=== PATIENT | male | born 1995 | race Caucasian/White ===

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

== ENCOUNTER 2017-03-31 15:05 | Inpatient (IN) | payer BC ==
[~2017-03-31] VITALS: Ht 177.8 cm; Wt 79.9 kg
[~2017-03-31 15:05] MED LIST changes: +ZANT150T2 PO; +ZOFR4TAB PO
[2017-03-31 15:06] VITALS: BP 125/64; PULSE 75; RESP 16; TEMP 98.9; O2SAT 97
--- NOTE | 2017-03-31 16:02 | PD ---
HPI . Overdose Chief Complaint: OD/ Ingestion Time Seen by Provider: 15:33 Travel History International Travel<30 days: No Contact w/Intl Traveler<30days: No Traveled to known affect area: No History of Present Illness HPI This patient presents status post a Klonopin overdose. He states that he took a total of 8 1 mg tablets. The ingestion occurred about 1:30 PM. He is having no adverse symptoms from the overdose such as drowsiness. He states that he has been feeling very stressed out about a new job. He states that he took the Klonopin hoping that it would make him feel better. The patient states that he was not trying to harm himself. He states that he was just trying to feel better. His mother disagrees. She is concerned that he was trying to hurt himself. PFSH Past Medical History ADD: Yes ADHD: Yes Autoimmune Disease: No Bipolar Disorder: Yes Anxiety: Yes Depression: Yes Cancer: No Cardiovascular Problems: No Cerebrovascular Accident: No Diabetes: No Diminished Hearing: No Endocrine: No Gastrointestinal Disorders: No Genitourinary: No Headaches: No Immune Disorder: No Implanted Vascular Access Dvce: No Musculoskeletal: No Neurologic: No Psychiatric: Yes (bipolar disorder, anxiety, depression) Respiratory: No Immunizations Current: Yes Migraines: No Schizophrenia: Yes Seizures: Yes Thyroid Disease: Yes (Evonne's disease) Ulcer: No Past Surgical History Section: No Social History Alcohol Use: Yes Tobacco Use: No (only 6 months) Substance Use: No Allergies-Medications (Allergen,Severity, Reaction): Coded Allergies: No Known Allergies (Unverified , 12/28/16) Reported Meds & Prescriptions Reported Meds & Active Scripts Active Zofran (Ondansetron HCl) 4 Mg Tab 4 Mg PO Q6HR PRN Zantac (Ranitidine HCl) 150 Mg Tab 150 Mg PO BID Benztropine (Benztropine Mesylate) 1 Mg Tab 1 Mg PO BID 15 Days Reported Ambien (Zolpidem Tartrate) 5 Mg Tab 5 Mg PO HS PRN Gabapentin 100 Mg Cap 200 Mg PO BID Klonopin (Clonazepam) 0.5 Mg Tab 1 Mg PO TID PRN Tirosint (Levothyroxine Sodium) 125 Mcg Cap 125 Mcg PO DAILY Review of Systems Except as stated in HPI: all other systems reviewed are Neg Psychiatric: Positive: Anxiety, Depression, Mood Disorder, No: Disorder of Thought Endocrine: Positive: Other (history of adrenal insufficiency and hypothyroidism ) Physical Exam Narrative GENERAL: The patient is awake and alert and does not appear to be in any distress. He appears well groomed. He is not disheveled. SKIN: Warm and dry with no rash or lesions. HEAD: Normocephalic/atraumatic. EYES: Pupils are equal. Extraocular movements are intact. NECK: Supple. CARDIOVASCULAR: Regular rate and rhythm. RESPIRATORY: Nonlabored respirations. MUSCULOSKELETAL: Atraumatic. NEUROLOGICAL: Nonfocal. PSYCHIATRIC: Appropriate mood and affect. Poor judgment. Data Data Last Documented VS Vital Signs Date Time Temp Pulse Resp B/P (MAP) Pulse Ox O2 Delivery O2 Flow Rate FiO2 03/31/17 15:06 98.9 75 16 125/64 (84) 97 Room Air Orders Orders Complete Blood Count With Diff (03/31/17 15:43) Basic Metabolic Panel (Bmp) (03/31/17 15:43) Thyroid Stimulating Hormone (03/31/17 15:43) Psych Screen (03/31/17 15:43) Drug Screen, Random Urine (03/31/17 15:43) Labs Laboratory Tests Test 03/31/17 15:50 White Blood Count 6.0 TH/MM3 Red Blood Count 4.35 MIL/MM3 Hemoglobin 12.1 GM/DL Hematocrit 36.3 % Mean Corpuscular Volume 83.6 FL Mean Corpuscular Hemoglobin 27.8 PG Mean Corpuscular Hemoglobin Concent 33.3 % Red Cell Distribution Width 15.5 % Platelet Count 205 TH/MM3 Mean Platelet Volume 8.8 FL Neutrophils (%) (Auto) 56.5 % Lymphocytes (%) (Auto) 29.3 % Monocytes (%) (Auto) 11.6 % Eosinophils (%) (Auto) 1.8 % Basophils (%) (Auto) 0.8 % Neutrophils # (Auto) 3.4 TH/MM3 Lymphocytes # (Auto) 1.8 TH/MM3 Monocytes # (Auto) 0.7 TH/MM3 Eosinophils # (Auto) 0.1 TH/MM3 Basophils # (Auto) 0.0 TH/MM3 CBC Comment DIFF FINAL Differential Comment Blood Urea Nitrogen 14 MG/DL Creatinine 0.94 MG/DL Random Glucose 83 MG/DL Calcium Level 8.8 MG/DL Sodium Level 139 MEQ/L Potassium Level 3.7 MEQ/L Chloride Level 105 MEQ/L Carbon Dioxide Level 26.8 MEQ/L Anion Gap 7 MEQ/L Estimat Glomerular Filtration Rate 102 ML/MIN Thyroid Stimulating Hormone 3rd Gen 1.640 uIU/ML MDM Medical Decision Making Medical Screen Exam Complete: Yes Emergency Medical Condition: Yes Medical Record Reviewed: Yes (this patient has had several previous admissions to this facility for overdose and other psychiatric issues. His current psychiatric diagnoses include autism spectrum, bipolar disorder, adjustment disorder, mood disorder, borderline personality disorder and intentional overdose on benzodiazepines.) Differential Diagnosis Differential diagnosis of depression includes but is not limited to episodic depression, major depression, bipolar disorder, PTSD Narrative Course This patient presents with the chief complaint to me of being stressed out by new job. He states that he took extra Klonopin to help his symptoms related to the stress. He denies suicidal ideation. I have initiated a medical clearance exam including a TSH because of his history of hypothyroidism. He is agreeable to speaking with a psych screener. CBC & BMP Diagram 03/31/17 15:50 Calcium Level 8.8 TSH is normal. This patient is now medically clear for psychiatric screening. Diagnosis Primary Impression: Intentional benzodiazepine overdose Qualified Codes: T42.4X2A - Poisoning by benzodiazepines, intentional self- harm, initial encounter Condition: Stable Marissa Johnson MD Mar 31, 2017 16:02
[2017-03-31 16:06] LABS: AUTOMATED NEUTROPHIL # 3.4 TH/MM3 (1.8-7.7); BASOPHIL % 0.8 % (0.0-2.0); EOSINOPHIL # 0.1 TH/MM3 (0-0.4); EOSINOPHIL % 1.8 % (0.0-4.0); HEMATOCRIT 36.3 % (39.0-51.0); HEMO FLAGS DIFF FINAL; LYMPH % 29.3 % (9.0-44.0); LYMPHOCYTE # 1.8 TH/MM3 (1.0-4.8); MEAN CELL VOLUME 83.6 FL (80.0-100.0); MEAN CORPUSCULAR HEMOGLOBIN 27.8 PG (27.0-34.0); MEAN CORPUSCULAR HGB CONC 33.3 % (32.0-36.0); MONO % 11.6 % (0.0-8.0); NEUT % 56.5 % (16.0-70.0); PLATELET COUNT 205 TH/MM3 (150-450); RED BLOOD COUNT 4.35 MIL/MM3 (4.50-5.90); RED CELL DISTRIBUTION WIDTH 15.5 % (11.6-17.2)
[2017-03-31 16:31] LABS: BICARBONATE 26.8 MEQ/L (21.0-32.0); POTASSIUM 3.7 MEQ/L (3.5-5.1)
--- NOTE | 2017-03-31 18:17 | PD ---
Physical Exam Narrative Informed by nurse that pt does not want to go to [facility]. Pt is medically clear for psych evaluation after overdosing on klonopin. Pt said he was stressed and depressed. Said he does have suicidal thoughts at times. I do not feel that he is a safe discharge if he decides to go and that this is not a normal response to stress. I feel that he is a danger to himself so will Mock Act him at this time and have pt wait for psych evaluation. He said he will wait as long as he does not go to [facility]. I informed him that he will have to go to [facility] if the medical bed is needed and he has not been seen by psych yet. He agrees. Data Data Last Documented VS Vital Signs Date Time Temp Pulse Resp B/P (MAP) Pulse Ox O2 Delivery O2 Flow Rate FiO2 03/31/17 21:21 75 16 118/62 (80) 98 Room Air 03/31/17 15:06 98.9 Orders Orders Complete Blood Count With Diff (03/31/17 15:43) Basic Metabolic Panel (Bmp) (03/31/17 15:43) Thyroid Stimulating Hormone (03/31/17 15:43) Psych Screen (03/31/17 15:43) Drug Screen, Random Urine (03/31/17 15:43) Diet Regular Basic (03/31/17 Dinner) Labs Laboratory Tests Test 03/31/17 15:50 03/31/17 18:40 White Blood Count 6.0 TH/MM3 Red Blood Count 4.35 MIL/MM3 Hemoglobin 12.1 GM/DL Hematocrit 36.3 % Mean Corpuscular Volume 83.6 FL Mean Corpuscular Hemoglobin 27.8 PG Mean Corpuscular Hemoglobin Concent 33.3 % Red Cell Distribution Width 15.5 % Platelet Count 205 TH/MM3 Mean Platelet Volume 8.8 FL Neutrophils (%) (Auto) 56.5 % Lymphocytes (%) (Auto) 29.3 % Monocytes (%) (Auto) 11.6 % Eosinophils (%) (Auto) 1.8 % Basophils (%) (Auto) 0.8 % Neutrophils # (Auto) 3.4 TH/MM3 Lymphocytes # (Auto) 1.8 TH/MM3 Monocytes # (Auto) 0.7 TH/MM3 Eosinophils # (Auto) 0.1 TH/MM3 Basophils # (Auto) 0.0 TH/MM3 CBC Comment DIFF FINAL Differential Comment Blood Urea Nitrogen 14 MG/DL Creatinine 0.94 MG/DL Random Glucose 83 MG/DL Calcium Level 8.8 MG/DL Sodium Level 139 MEQ/L Potassium Level 3.7 MEQ/L Chloride Level 105 MEQ/L Carbon Dioxide Level 26.8 MEQ/L Anion Gap 7 MEQ/L Estimat Glomerular Filtration Rate 102 ML/MIN Thyroid Stimulating Hormone 3rd Gen 1.640 uIU/ML Urine Opiates Screen NEG Urine Barbiturates Screen NEG Urine Amphetamines Screen NEG Urine Benzodiazepines Screen NEG Urine Cocaine Screen NEG Urine Cannabinoids Screen NEG MDM Supervised Visit with JEOVANNY: No Diagnosis Primary Impression: Intentional benzodiazepine overdose Qualified Codes: T42.4X2A - Poisoning by benzodiazepines, intentional self- harm, initial encounter Condition: Stable Tami Gordon DO Mar 31, 2017 18:17
[2017-03-31 21:21] VITALS: BP 118/62; PULSE 75; RESP 16; O2SAT 98
[2017-04-01 07:45] VITALS: BP 99/54; PULSE 71; RESP 18; O2SAT 99
[2017-04-01 15:00] VITALS: BP 134/61; PULSE 61; RESP 18
--- NOTE | 2017-04-01 15:19 | PD ---
History of Present Illness Chief Complaint: OD/ Ingestion Time Seen by Provider: 14:40 Travel History International Travel<30 Days: No Contact w/Intl Traveler<30days: No Known affected area: No Legal Status Legal Status: Mock Act Mock Act Signed By: [facility] CHICAS, [facility] History of Present Illness: History of Present Illness HPI Patient is a 22 year old male with history of bipolar disorder, borderline personality disorder,ADHD, cannabis use disorder, past history of self injurious behavior who presents status post a Klonopin overdose. He reports that he took a total of eight 1 mg tablets with intent to " kill myself because he feels that his psychiatric medications are not working." The ingestion occurred about 1:30 PM. Toxicology on arrival to Ed is negative for benzos. However the patient denied to ED providers that he took the medication as a suicide attempt. However he reported to them that that " he has been feeling very stressed out about a new job. He states that he took the Klonopin hoping that it would make him feel better and that he was not trying to harm himself." His mother disagrees. She is concerned that he was trying to hurt himself. EMR reviewed. Multiple Ed visits for suicidal gestures. Multiple admission for suicidal ideation and suicidal attempt. Last hosp was in October of 2016 when he reported he overdosed on Klonopin. His last hosp in psychiatry was on September 2016 when he reported feeling suicidal as well as reporting he was feeling manic. Patient seen. He is alert, oriented male who is maintaining basic hygiene. He reports feeling suicdal, hopeless with no desire to be alive. There is no psychosis and no audrey. Unable to contract for safety . Telephone call to Dr. Carty ,outpatient psychiatrist at [phone]. He reports that he saw patient once in outpatient and that he is recommending inpatient admission. He has discussed with this patient a possible trial of Clozaril and he would like for this medication to be started while the patient is in the hospital. [facility] Past Medical History ADD: Yes ADHD: Yes Autoimmune Disease: No Bipolar Disorder: Yes Weight (Kg): 3 Anxiety: Yes Depression: Yes Cancer: No Cardiovascular Problems: No Cerebrovascular Accident: No Diabetes: No Diminished Hearing: No Endocrine: No Gastrointestinal Disorders: No Genitourinary: No Headaches: No Immune Disorder: No Implanted Vascular Access Dvce: No Musculoskeletal: No Neurologic: No Psychiatric: Yes (bipolar disorder, anxiety, depression) Respiratory: No Immunizations Current: Yes Migraines: No Schizophrenia: Yes Seizures: Yes Thyroid Disease: Yes (Evonne's disease) Ulcer: No ?: Not Past Surgical History Surgical History: No Previous Surgery Section: No Psychiatric History Psychiatric History Hx Psychiatric Treatment: PATIENT WAS [facility] ADM[place] [place] [facility] [place] 10[place]26/16 FOR INTENTIONAL OVERDOSE. History of Inpatient Treatment: Yes Guns or firearms in home: No Social History Sing[place] male.Lives with parents. Has been working at [employer]. Hx Alcohol Use: Yes Hx Tobacco Use: No Hx Substance Use: No Substance Use Type: Marijuana, Benzos (Valium,Xanax) Hx of Substance Use Treatment: No Family Psychiatric History None reported Allergies-Medications (Allergen,Severity, Reaction): Coded Allergies: No Known Allergies (Unverified , 12/28/16) Reported Meds & Prescriptions Reported Meds & Active Scripts Active Zofran (Ondansetron HCl) 4 Mg Tab 4 Mg PO Q6HR PRN Zantac (Ranitidine HCl) 150 Mg Tab 150 Mg PO BID Benztropine (Benztropine Mesylate) 1 Mg Tab 1 Mg PO BID 15 Days Reported Ambien (Zolpidem Tartrate) 5 Mg Tab 5 Mg PO HS PRN Gabapentin 100 Mg Cap 200 Mg PO BID Klonopin (Clonazepam) 0.5 Mg Tab 1 Mg PO TID PRN Tirosint (Levothyroxine Sodium) 125 Mcg Cap 125 Mcg PO DAILY Review of Systems Except as stated in HPI: all other systems reviewed are Neg Mental Status Examination Appearance: Appropriate (dressed in pajamas) Orientation: x4 Motor Activity: Normal gait Speech: Unremarkable Language: Adequate Fund of Knowledge: Adequate Attention and Concentration: Adequate Memory: Unremarkable Mood: Sad Affect: Sad Thought Process & Associations: Intact Thought Content: Appropriate Hallucination Type: None Delusion Type: None Suicidal Ideation: Yes Suicidal Plan: Yes (overdose) Suicidal Intention: Yes Homicidal Ideation: No Homicidal Plan: No Homicidal Intention: No Insight: Poor Judgment: Impulsive MDM Medical Decision Making Medical Record Reviewed: Yes Assessment/Plan Patient is a 22 year old male with history of bipolar disorder, borderline personality disorder,ADHD, cannabis use disorder, past history of self injurious behavior who presents status post a Klonopin overdose. He reports that he took a total of eight 1 mg tablets with intent to " kill myself because he feels that his psychiatric medications are not working." The ingestion occurred about 1:30 PM. Toxicology on arrival to Ed is negative for benzos. However the patient denied to ED providers that he took the medication as a suicide attempt. However he reported to them that that " he has been feeling very stressed out about a new job. He states that he took the Klonopin hoping that it would make him feel better and that he was not trying to harm himself." Patient reports continued suicidal ideation with intent to overdose on medications. His outpatient psychiatrist is recommending hospitalization for possible initiation of Clozaril. The patient will be admitted for further monitoring, medication evaluation and to maintain safety. Orders Orders Complete Blood Count With Diff (03/31/17 15:43) Basic Metabolic Panel (Bmp) (03/31/17 15:43) Thyroid Stimulating Hormone (03/31/17 15:43) Psych Screen (03/31/17 15:43) Drug Screen, Random Urine (03/31/17 15:43) Diet Regular Basic (03/31/17 Dinner) Diet Regular Basic (04/01/17 Breakfast) Diet Regular Basic (04/01/17 Dinner) Results Vital Signs Date Time Temp Pulse Resp B/P (MAP) Pulse Ox O2 Delivery O2 Flow Rate FiO2 04/01/17 12:35 04/01/17 07:45 71 18 99/54 (69) 99 Room Air 03/31/17 21:21 75 16 118/62 (80) 98 Room Air Laboratory Tests Test 03/31/17 15:50 03/31/17 18:40 White Blood Count 6.0 Red Blood Count 4.35 Hemoglobin 12.1 Hematocrit 36.3 Mean Corpuscular Volume 83.6 Mean Corpuscular Hemoglobin 27.8 Mean Corpuscular Hemoglobin Concent 33.3 Red Cell Distribution Width 15.5 Platelet Count 205 Mean Platelet Volume 8.8 Neutrophils (%) (Auto) 56.5 Lymphocytes (%) (Auto) 29.3 Monocytes (%) (Auto) 11.6 Eosinophils (%) (Auto) 1.8 Basophils (%) (Auto) 0.8 Neutrophils # (Auto) 3.4 Lymphocytes # (Auto) 1.8 Monocytes # (Auto) 0.7 Eosinophils # (Auto) 0.1 Basophils # (Auto) 0.0 CBC Comment DIFF FINAL Differential Comment Blood Urea Nitrogen 14 Creatinine 0.94 Random Glucose 83 Calcium Level 8.8 Sodium Level 139 Potassium Level 3.7 Chloride Level 105 Carbon Dioxide Level 26.8 Anion Gap 7 Estimat Glomerular Filtration Rate 102 Thyroid Stimulating Hormone 3rd Gen 1.640 Urine Opiates Screen NEG Urine Barbiturates Screen NEG Urine Amphetamines Screen NEG Urine Benzodiazepines Screen NEG Urine Cocaine Screen NEG Urine Cannabinoids Screen NEG Diagnosis Primary Impression: Intentional benzodiazepine overdose Additional Impression: Borderline personality disorder Admitting Information Admitting Physician Requests: Admit Condition: Stable Problem Qualifiers Primary Impression: Intentional benzodiazepine overdose Qualified Codes: T42.4X2A - Poisoning by benzodiazepines, intentional self- harm, initial encounter Alondra Palma [facility] Apr 01, 2017 15:19
[2017-04-01] MEDS ORDERED: LORazepam 2 MG/ML VIAL IM PRN ×2 (16:15)
[2017-04-01] MEDS ORDERED: clonazePAM 1 MG TAB PO PRN (16:15)
[2017-04-01] MEDS ORDERED: ZOLPIDEM TARTRATE 5 MG TAB PO PRN (16:15)
[2017-04-01] MEDS ORDERED: ACETAMINOPHEN 325 MG TAB PO PRN (16:15)
[2017-04-01] MEDS ORDERED: MAGNESIUM HYDROXIDE SUSP 30 ML CUP PO PRN (16:15)
[2017-04-01] MEDS ORDERED: LORazepam 0.5 MG TAB PO PRN (16:15)
[2017-04-01] MEDS ORDERED: ALUMINUM/MAGNESIUM/SIMETH 30 ML CUP PO PRN (16:15)
[2017-04-01] MEDS ORDERED: LORazepam 1 MG TAB PO PRN (16:15)
[2017-04-01] MEDS ORDERED: NICOTINE 21 MG/24 HR PATCH T-DERMAL SCH (17:00)
[2017-04-01] MEDS ORDERED: LEVOTHYROXINE SODIUM 125 MCG TAB PO SCH (17:00)
[2017-04-01 18:03] VITALS: BP 134/61; PULSE 61; RESP 18; TEMP 98.9; O2SAT 99
[2017-04-01] MEDS: THYROID 60 MG TAB PO SCH (20:00)
[2017-04-01] MEDS: GABAPENTIN 100 MG CAP PO SCH (20:28)
[2017-04-01] MEDS ORDERED: REMOVE OLD NICODERM (NICOTINE) PATCH T-DERMAL SCH (21:00)
[2017-04-02 05:45] VITALS: BP 106/55; PULSE 60; RESP 17; TEMP 97.5; O2SAT 97
[2017-04-02] MEDS: GABAPENTIN 100 MG CAP PO SCH ×2 (09:00→09:13)
[2017-04-02] MEDS: THYROID 60 MG TAB PO SCH (09:13)
[2017-04-02 10:41] LABS: ANION GAP 4 MEQ/L (5-15); BICARBONATE 29.9 MEQ/L (21.0-32.0); BLOOD UREA NITROGEN 12 MG/DL (7-18); CHLORIDE 104 MEQ/L (98-107); GLOMERULAR FILTRATION RATE 121 ML/MIN (>89); POTASSIUM 4.3 MEQ/L (3.5-5.1); SODIUM (NA) 138 MEQ/L (136-145)
[2017-04-02 10:44] LABS: HDL CHOLESTEROL 32.3 MG/DL (40.0-60.0); LDL CHOLESTEROL 46 MG/DL (0-99)
--- NOTE | 2017-04-02 10:51 | HHI.HP ---
Provisional Diagnosis Admission Date Apr 01, 2017 at 16:07 [place]. 1. Atypical bipolar disorder [place]. 1. Mixed personality disorder Certification of Person's Competence To Provide Express and Informed Consent I have personally examined Lex Stephensno , a person being served at [facility] on, Apr 02, 2017 10:51. Express and informed consent means consent voluntarily given in writing, by a competent person, after sufficient explanation and disclosure of the subject matter involved to enable the person to make a knowing and willful decision without any element of force, fraud, deceit, duress, or other form of constraint or coercion. This person is 18 years of age or older, is not now known to be incompetent to consent to treatment with a guardian advocate, and does not have a health care surrogate or proxy currently making medical treatment decisions. I have found this person to be one of the following: [x] Competent to provide express and informed consent, as defined above, for voluntary admission to this facility and is competent to provide express and informed consent for treatment. He/she has the consistent capacity to make well reasoned, willful, and knowing decisions concerning his or her medical or mental health treatment. The person fully and consistently understands the purpose of the admission for examination/placement and is fully capable of personally exercising all rights assured [place] Incompetent to provide express and informed consent to voluntary admission, and this is incompetent to provide express and informed consent to treatment. The person must be transferred to involuntary status and a petition for a guardian advocate filed with the Circuit Court. [] Refusing to provide express and informed consent to voluntary admission but is competent to provide express and informed consent for treatment. The person must be discharged or transferred to involuntary status. Form shall be completed within 24 hours of a person's arrival at the receiving facility and filed in the clinical record of each person: 1. Admitted on a voluntary basis 2. Permitted to provide express and informed consent to his/her own treatment 3. Allowed to transfer from involuntary to voluntary status 4. Prior to permitting a person to consent to his or her own treatment after having been previously found incompetent to consent to treatment. History of Present Illness Capacity: Has Capacity Psych Chief Complaint: "I tried to kill myself again." HPI Mr. Stephenson is a 22-year-old male, well known to the psychiatric service here from multiple prior admissions and ED visits who presented voluntarily to the emergency department following an overdose on 8 Klonopin. He was placed under the Mock act in the ED. Nurse practitioner evaluated patient in the ED and also discussed case with outpatient psychiatrist who is requesting a Clozaril trial. Reviewing the electronic medical record, I note the patient was seen most recently in consultation by Dr. Mora in October of this year. Patient seen and examined. Chart reviewed. Case discussed with nursing staff. The patient says that he "started feeling a little stressed in the last few days before starting work" and impulsively decided to overdose on 8 x 1 mg Klonopin tablets. He says that it was his intention to take more and that this was a suicidal overdose but his father found out and aborted the attempt. He says that prior to feeling stressed out recently things have been going well for him, he was compliant with medications, exercising and his mood was better than it had been in some time. Now, he describes himself as "deeply and darkly depressed." He does remain somewhat future oriented. Besides low mood, the patient does not describe many depressive symptoms. He denies SI/HI at this time and denies any urge to hurt himself on the inpatient unit. He does contract for safety on the unit. He denies AVH, and I can elicit no delusional material. Prominent mixed personality disorder traits, chiefly borderline. Medication seeking for benzodiazepines. The remainder of the psychiatric ROS is negative. No physical complaints. Past psychiatric history: The patient has a history of bipolar disorder, borderline personality disorder and concern for substance use issues. He had been following with Dr. Reyes but recently has switched to Dr. Yusuf. He reports that he was recently hospitalized at [facility] for inpatient ECT. He says that he received 8 treatments, which helped, but he did not pursue any continuation or maintenance ECT, and the therapeutic gains that he had experienced with the acute series rapidly abated. Multiple previous suicidal gestures. He is not currently pursuing psychotherapy. I do recall that he was supposed to participate in a DBT program in the past, which he says he did "for a little bit." I did endeavor to reach out to Dr. Yusuf regarding the requested initiation of Clozaril. I left a message at his office. He called me back and left a voicemail requesting initiation of Clozaril. I did try to call him back once more and left a voicemail of my own. Placed call to patient's [facility] pharmacy. Most recent med list is: [place] thyroid 60mg per day clonidine 0.2mg qAM and 0.1mg qHS Klonopin 1mg BID plus 1mg daily PRN anxiety Lamictal 100mg BID Remeron 30mg qHS Review of Systems Except as stated in HPI: all other systems reviewed are Neg Past Psych History Psychological trauma history No reported trauma history to me. Violence risk - others (6 mos) Lower imminent risk. No homicidal ideation. No known history of violence. Violence risk - self (6 mos) Likely chronically elevated risk as a consequence of his personality disorder. Besides medication adjustment, main purpose of this admission will be to determine if there are any acute risk factors for self-harm. Substance Abuse History Drugs/Alcohol past 12 months Patient denies any abuse of drugs or alcohol. Concern has been raised in the past that the patient is misusing his benzodiazepines, most recently by Dr. Mora. Past Family Social History Coded Allergies: No Known Allergies (Unverified , 12/28/16) Past Medical History See electronic medical record Active Scripts Ondansetron (Zofran) 4 Mg Tab, 4 MG PO Q6HR Y for NAUSEA OR VOMITING, #12 TAB 0 Refills Prov:Marissa Johnson MD 12/28/16 Ranitidine (Zantac) 150 Mg Tab, 150 MG PO BID for Reduce Stomach Acid, #60 TAB 0 Refills Prov:Marissa Johnson MD 12/28/16 Benztropine (Benztropine) 1 Mg Tab, 1 MG PO BID for Side effect management for 15 Days, TAB 1 Refill Prov:Messi Miguel MD 09/22/16 Reported Medications Zolpidem (Ambien) 5 Mg Tab, 5 MG PO HS Y for INSOMNIA, TAB 0 Refills 07/18/16 Gabapentin (Gabapentin) 100 Mg Cap, 200 MG PO BID, #60 CAP 0 Refills 07/18/16 Clonazepam (Klonopin) 0.5 Mg Tab, 1 MG PO TID Y for ANXIETY, #90 TAB 0 Refills 07/18/16 Levothyroxine (Tirosint) 125 Mcg Cap, 125 MCG PO DAILY for Thyroid, #30 CAP 0 Refills 05/18/16 Current Medications Medications (Trade) Dose Ordered Sig/Inocencio Route Start Time Stop Time Status Last Admin (KlonoPIN) 1 mg TID PRN PO 04/01/17 16:15 04/01/17 18:42 (Neurontin) 200 mg BID PO 04/01/17 21:00 04/01/17 20:28 (Ambien) 5 mg HS PRN PO 04/01/17 16:15 04/01/17 22:25 (Tylenol) 650 mg Q4H PRN PO 04/01/17 16:15 (Milk Of Magnesia Liq) 30 ml DAILY PRN PO 04/01/17 16:15 (Mag-Al Plus Susp Liq) 30 ml Q6H PRN PO 04/01/17 16:15 ([place] Thyroid) 60 mg DAILY PO 04/01/17 20:00 04/02/17 09:13 Family Psych History Patient denies any family history of mental illness Social History Patient reports that he lives with his parents. He is starting a new job at [employer]. 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 Otherwise, social history unchanged from previous assessments. Patient's Strengths (min. 2) In a monitored setting. Verbally fluent. Physical Exam Physical exam completed by ED provider. On my examination today, the patient appears to be in no acute physical distress. No motor abnormalities noted. No signs of intoxication or withdrawal noted. Labs and vitals reviewed: Vital Signs Vital Signs Date Time Temp Pulse Resp B/P (MAP) Pulse Ox O2 Delivery O2 Flow Rate FiO2 04/02/17 05:45 97.5 60 17 106/55 (72) 97 04/01/17 15:00 Room Air Lab Results Item Value Date Time White Blood Count 6.0 TH/MM3 03/31/17 1550 Hemoglobin 12.1 GM/DL L 03/31/17 1550 Platelet Count 205 TH/MM3 03/31/17 1550 Neutrophils # (Auto) 3.4 TH/MM3 03/31/17 1550 Sodium Level 138 MEQ/L 04/02/17 0944 Potassium Level 4.3 MEQ/L 04/02/17 0944 Chloride Level 104 MEQ/L 04/02/17 0944 Carbon Dioxide Level 29.9 MEQ/L 04/02/17 0944 Blood Urea Nitrogen 12 MG/DL 04/02/17 0944 Creatinine 0.81 MG/DL 04/02/17 0944 Random Glucose 78 MG/DL 04/02/17 0944 Estimat Glomerular Filtration Rate 121 ML/MIN 04/02/17 0944 Thyroid Stimulating Hormone 3rd Gen 1.640 uIU/ML 03/31/17 1550 Urine Opiates Screen NEG 03/31/17 1840 Urine Barbiturates Screen NEG 03/31/17 1840 Urine Amphetamines Screen NEG 03/31/17 1840 Urine Benzodiazepines Screen NEG 03/31/17 1840 Urine Cocaine Screen NEG 03/31/17 1840 Urine Cannabinoids Screen NEG 03/31/17 1840 Aspartate Amino Transf (AST/SGOT) 22 U/L 12/28/16 1350 Alanine Aminotransferase (ALT/SGPT) 30 U/L 12/28/16 1350 Alkaline Phosphatase 83 U/L 12/28/16 1350 Labs reviewed. Anemia is within patient's historical range. TSH is within normal limits. ANC is adequate for Clozaril therapy. Mental Status Examination Appearance: Appropriate Consciousness: Alert Orientation: x4 Motor Activity: Normal gait, Other (no abnormal motor movements noted) Speech: Unremarkable Language: Adequate Fund of Knowledge: Adequate Attention and Concentration: Adequate Memory: Unremarkable Mood: Other (depressed) Affect: Blunt Thought Process & Associations: Logical, Linear Thought Content: Appropriate Hallucination Type: None Delusion Type: None Suicidal Ideation: No Suicidal Plan: No Suicidal Intention: No Homicidal Ideation: No Homicidal Plan: No Homicidal Intention: No Insight: Poor Judgment: Impulsive Assessment & Plan Problem List: (1) Atypical bipolar disorder ICD Codes: F31.89 - Other bipolar disorder (2) Mixed personality disorder ICD Codes: F60.89 - Other specific personality disorders Status: Acute Assessment & Plan 22-year-old male with psychiatric history as detailed above who is presently admitted to the inpatient unit under a Mock act. On my examination today, the patient continues to present with prominent personality disorder characteristics, chiefly borderline. Outpatient psychiatrist, presumably treating as for treatment resistant bipolar disorder, is requesting clozapine trial. I suspect personality pathology is the primary driver education instructor for patient's recurrent gestural overdoses and psychiatric symptomatology generally. However , given the persistence of these problematic behaviors, I think that a trial of clozapine is not wholly unreasonable. I will plan to admit the patient to the inpatient psychiatric unit for a medication adjustment. Admitted inpatient. Voluntary status. Initiate clozapine 25mg qHS, titrate to 50mg qHS over weekend. Weekly CBCs. Continue Lamictal 100mg BID, Remeron 30mg qHS and Klonopin 1mg BID + 1mg daily PRN anxiety along with clonidine as prescribed on an outpatient basis. I share Dr. Mora's concerns about substance use issues, and so I will not escalate the dose of benzos. Check EKG. Seizure and fall precautions. Vitals every shift. Counselor to see. Disposition planning. Estimated length of stay: 3-5 days. Discharge Planning Pending outcome of observation and med change Request HC Surrog/Guard Advoc?: No Messi Miguel MD Apr 02, 2017 10:51
[2017-04-02] MEDS ORDERED: clonazePAM 1 MG TAB PO PRN (13:30)
[2017-04-02] MEDS: clonazePAM 1 MG TAB PO SCH ×2 (14:45→20:17)
[2017-04-02] MEDS: lamoTRIgine 100 MG TAB PO SCH ×2 (14:45→20:17)
[2017-04-02 15:14] LABS: HEMOGLOBIN A1a 0.9 %; HEMOGLOBIN A1b 0.8 %; HEMOGLOBIN Ao 86.8 %; HEMOGLOBIN F 0.9 %; HEMOGLOBIN LA1C 1.7 %; HEMOGLOBIN P3 3.3 %
[2017-04-02 17:00] VITALS: BP 120/67; PULSE 75; RESP 18; TEMP 98.1; O2SAT 98
[2017-04-02] MEDS: MIRTAZAPINE 15 MG TAB PO SCH (20:17)
[2017-04-02] MEDS: cloZAPine 25 MG TAB PO SCH (20:17)
[2017-04-02] MEDS: cloNIDine HCL 0.1 MG TAB PO SCH (20:18)
[2017-04-03 05:44] VITALS: BP 101/55; PULSE 59; RESP 18; TEMP 97.4; O2SAT 99
[2017-04-03] MEDS: cloNIDine HCL 0.2 MG TAB PO SCH ×2 (08:38→11:00)
[2017-04-03] MEDS: THYROID 60 MG TAB PO SCH (08:38)
[2017-04-03] MEDS: clonazePAM 1 MG TAB PO SCH ×2 (08:38→20:25)
[2017-04-03] MEDS: lamoTRIgine 100 MG TAB PO SCH ×2 (08:38→20:26)
[2017-04-03 11:11] VITALS: BP 118/71; PULSE 75
--- NOTE | 2017-04-03 17:04 | HHI.PYPN ---
Subjective Chief Complaint: "I tried to kill myself again." Remarks Patient was seen and case discussed with nursing. Patient is pleasant and cooperative with exam. He is showing good insight and is very inquisitive about his medications. Later becomes perseverative on a specific discharge date. Has not noticed any side effects beside mild sedation. Patient says his mood has improved but he has fleeting suicidal thoughts wishing that he was not alive anymore. Feeling hopeless. He does deny ideation intent or plan Mental Status Examination Appearance: Appropriate Consciousness: Alert Orientation: x4 Motor Activity: Normal gait, Other (no abnormal motor movements noted) Speech: Unremarkable Language: Adequate Fund of Knowledge: Adequate Attention and Concentration: Adequate Memory: Unremarkable Mood: Other (depressed) Affect: Blunt Thought Process & Associations: Logical, Linear Thought Content: Appropriate Hallucination Type: None Delusion Type: None Suicidal Ideation: Yes (fleeting) Suicidal Plan: No Suicidal Intention: No Homicidal Ideation: No Homicidal Plan: No Homicidal Intention: No Insight: Poor Judgment: Impulsive Results Vitals/IOs Vital Signs Date Time Temp Pulse Resp B/P (MAP) Pulse Ox O2 Delivery O2 Flow Rate FiO2 04/03/17 11:11 75 118/71 (87) 04/03/17 05:44 97.4 18 99 04/01/17 15:00 Room Air Assessment & Plan Problem List: (1) Atypical bipolar disorder ICD Codes: F31.89 - Other bipolar disorder (2) Mixed personality disorder ICD Codes: F60.89 - Other specific personality disorders Status: Acute Assessment & Plan Continue current treatment plan Justification for Cont. Inpt. Patient will decompensate in a less restrictive setting Request HC Surrog/Guard Advoc?: No Dami Cedillo DO Apr 03, 2017 17:04
[2017-04-03 18:37] VITALS: BP 104/57; PULSE 76; RESP 17; TEMP 98.7; O2SAT 98
[2017-04-03] MEDS: cloNIDine HCL 0.1 MG TAB PO SCH (20:25)
[2017-04-03] MEDS: MIRTAZAPINE 15 MG TAB PO SCH (20:26)
[2017-04-03] MEDS: cloZAPine 25 MG TAB PO SCH (20:26)
[2017-04-04 05:32] VITALS: BP 104/51; PULSE 73; RESP 18; TEMP 98.1; O2SAT 98
[2017-04-04] MEDS: cloNIDine HCL 0.2 MG TAB PO SCH (08:06)
[2017-04-04] MEDS: THYROID 60 MG TAB PO SCH (08:08)
[2017-04-04] MEDS: lamoTRIgine 100 MG TAB PO SCH ×2 (08:08→20:46)
[2017-04-04] MEDS: clonazePAM 1 MG TAB PO SCH ×2 (08:09→20:45)
--- NOTE | 2017-04-04 14:02 | HHI.PYPN ---
Subjective Chief Complaint: "I tried to kill myself again." Remarks Patient was seen and case discussed with nursing. Patient remains somnolent feels "tired" but less so today. Patient is minimizing his mental health and believes that he is ready to go, get a job [employer]. He signed a right of release at 11 AM. Affect remains flat. Mood is "better." Denies suicidal homicidal ideations thought intent or plan. Largely seclusive to self. Mental Status Examination Appearance: Appropriate Consciousness: Alert Orientation: x4 Motor Activity: Normal gait, Other (no abnormal motor movements noted) Speech: Unremarkable Language: Adequate Fund of Knowledge: Adequate Attention and Concentration: Adequate Memory: Unremarkable Mood: Other ("better") Affect: Flat Thought Process & Associations: Logical, Linear Thought Content: Appropriate Hallucination Type: None Delusion Type: None Suicidal Ideation: Yes (fleeting) Suicidal Plan: No Suicidal Intention: No Homicidal Ideation: No Homicidal Plan: No Homicidal Intention: No Insight: Poor Judgment: Impulsive Results Vitals/IOs Vital Signs Date Time Temp Pulse Resp B/P (MAP) Pulse Ox O2 Delivery O2 Flow Rate FiO2 04/04/17 07:13 04/04/17 05:32 98.1 73 18 98 04/01/17 15:00 Room Air Assessment & Plan Problem List: (1) Atypical bipolar disorder ICD Codes: F31.89 - Other bipolar disorder (2) Mixed personality disorder ICD Codes: F60.89 - Other specific personality disorders Status: Acute Assessment & Plan Continue current treatment plan Justification for Cont. Inpt. Patient would decompensate in a less restrictive setting Request HC Surrog/Guard Advoc?: No Dami Cedillo DO Apr 04, 2017 14:02
[2017-04-04 16:40] VITALS: BP 105/55; PULSE 68; RESP 17; TEMP 98.2; O2SAT 97
[2017-04-04] MEDS: MIRTAZAPINE 15 MG TAB PO SCH (20:45)
[2017-04-04] MEDS: cloNIDine HCL 0.1 MG TAB PO SCH (20:46)
[2017-04-04] MEDS: cloZAPine 25 MG TAB PO SCH (20:47)
--- NOTE | 2017-04-04 21:12 | EKG ---
Date Performed: 04/02/2017 Time Performed: 14:25:24 PTAGE: 22 years EKG: Sinus rhythm NORMAL ECG PREVIOUS TRACING : 10/24/2016 02.50 DOCTOR: Alfonso Chan Interpretating Date/Time 04/04/2017 21:02:25
[2017-04-05 05:44] VITALS: BP 126/64; PULSE 81; RESP 18; TEMP 98.1; O2SAT 99
[2017-04-05] MEDS ORDERED: MIRTA15 PO (09:07)
[2017-04-05] MEDS ORDERED: CLON.2 PO (09:07)
[2017-04-05] MEDS ORDERED: CLOZ25 PO (09:07)
[2017-04-05] MEDS ORDERED: CLON.1 PO (09:07)
[2017-04-05] MEDS ORDERED: LAMO100 PO (09:07)
--- NOTE | 2017-04-05 09:07 | HHI.DS ---
Psychiatry Discharge Summary Inpatient Psychiatric care?: Yes Advance Directive: No Reason Not Provided: deferred by patient [facility] AdvanceDirective: No Health Care Proxy: No Admission Admission Date Apr 01, 2017 at 16:07 Admission Diagnosis: (1) Atypical bipolar disorder ICD Code: F31.89 - Other bipolar disorder (2) Mixed personality disorder ICD Code: F60.89 - Other specific personality disorders Brief History Mr. Stephenson is a 22-year-old male, well known to the psychiatric service here from multiple prior admissions and ED visits who presented voluntarily to the emergency department following an overdose on 8 Klonopin. He was placed under the Mock act in the ED. Nurse practitioner evaluated patient in the ED and also discussed case with outpatient psychiatrist who is requesting a Clozaril trial. Reviewing the electronic medical record, I note the patient was seen most recently in consultation by Dr. Mora in October of this year. Patient seen and examined. Chart reviewed. Case discussed with nursing staff. The patient says that he "started feeling a little stressed in the last few days before starting work" and impulsively decided to overdose on 8 x 1 mg Klonopin tablets. He says that it was his intention to take more and that this was a suicidal overdose but his father found out and aborted the attempt. He says that prior to feeling stressed out recently things have been going well for him, he was compliant with medications, exercising and his mood was better than it had been in some time. Now, he describes himself as "deeply and darkly depressed." He does remain somewhat future oriented. Besides low mood, the patient does not describe many depressive symptoms. He denies SI/HI at this time and denies any urge to hurt himself on the inpatient unit. He does contract for safety on the unit. He denies AVH, and I can elicit no delusional material. Prominent mixed personality disorder traits, chiefly borderline. Medication seeking for benzodiazepines. The remainder of the psychiatric ROS is negative. No physical complaints. Past psychiatric history: The patient has a history of bipolar disorder, borderline personality disorder and concern for substance use issues. He had been following with Dr. Reyes but recently has switched to Dr. Yusuf. He reports that he was recently hospitalized at [facility] for inpatient ECT. He says that he received 8 treatments, which helped, but he did not pursue any continuation or maintenance ECT, and the therapeutic gains that he had experienced with the acute series rapidly abated. Multiple previous suicidal gestures. He is not currently pursuing psychotherapy. I do recall that he was supposed to participate in a DBT program in the past, which he says he did "for a little bit." I did endeavor to reach out to Dr. Yusuf regarding the requested initiation of Clozaril. I left a message at his office. He called me back and left a voicemail requesting initiation of Clozaril. I did try to call him back once more and left a voicemail of my own. Placed call to patient's [facility] pharmacy. Most recent med list is: Bapchule thyroid 60mg per day clonidine 0.2mg qAM and 0.1mg qHS Klonopin 1mg BID plus 1mg daily PRN anxiety Lamictal 100mg BID Remeron 30mg qHS Tobacco Use In Past 30 Days: No Tobacco Past 30 Days Alcohol Use: Never Hospital Course Patient was admitted to a locked, inpatient psychiatric unit. Appropriate precautions were in place throughout patient's hospital stay. Patient was seen and examined daily on the unit by psychiatry and also visited by counselor. Psychotropic medications were adjusted. Patient tolerated medications well without side effects. Patient had improvement in presenting psychiatric symptomatology during the course of his hospital stay. There was no evidence of any suicidality or homicidality on the inpatient unit. The patient remained in good behavioral control and was medication compliant. He has completed a right of release. On the day of discharge: Patient seen and examined. Chart reviewed. Case discussed with nursing staff. No behavioral issues overnight. On my examination today, the patient continues to insist on discharge from the inpatient psychiatric unit today. He denies any suicidal or homicidal ideation , intent or plan on direct questioning and contracts for safety. He is future oriented. He says that he is "doing a lot better, and I want to get back to work." He says that prior to coming into the hospital he was feeling "angry and depressed" and now he is feeling neither of these things. Mood is reportedly improved and I can elicit no depressive or hypomanic/manic symptoms at this time. He denies any audiovisual hallucinations, and I can elicit no delusional beliefs. Cluster B personality traits remain evident. He denies any side effects from medications besides some mild drowsiness and lightheadedness. I have recommended to patient that he try holding his clonidine in particular if he continues to experience episodes of lightheadedness. He should not operate heavy machinery and should practice safe standing while he continues to experience these symptoms. I have recommended that he remain on the inpatient psychiatric unit for further monitoring on medications but he has declined. He notes that he has a psychology appointment tomorrow. I have spoken with patient's outpatient psychiatrist, Dr. Yusuf, on the day of discharge and discussed patient's hospital course and medication changes. 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 I do suspect there is a component of chronic but not acute or imminent risk related to the patient's cluster B personality style, and this risk would not be ameliorated by a longer inpatient psychiatric hospital stay. The patient does not meet criteria for involuntary psychiatric hospitalization at this time. He is requesting discharge from the inpatient psychiatric unit today and has completed a right of release, and so I will arrange for his discharge with psychiatric follow-up as arranged by counselor. Patient is also to follow-up with primary care. I have counseled the patient regarding warning signs for need to return to the psychiatric emergency room as part of the general safety plan. Results Blood Pressure 126 / 64 Vital Signs Date Time Temp Pulse Resp B/P (MAP) Pulse Ox O2 Delivery O2 Flow Rate FiO2 04/05/17 05:44 98.1 81 18 126/64 (84) 99 04/01/17 15:00 Room Air Laboratory Tests Test 04/02/17 09:44 Anion Gap 4 MEQ/L (5-15) Triglycerides Level 160 MG/DL (42-150) Cholesterol Level 110 MG/DL (120-200) HDL Cholesterol 32.3 MG/DL (40.0-60.0) Laboratory Results Test 04/02/17 09:44 Cholesterol Level 110 MG/DL (120-200) HDL Cholesterol 32.3 MG/DL (40.0-60.0) Hemoglobin A1c 5.3 % (4.3-6.0) LDL Cholesterol 46 MG/DL (0-99) Triglycerides Level 160 MG/DL (42-150) Summary of Major Lab Results CBC from 04/05 reviewed. ANC remains adequate for clozapine therapy. Summary of Procedures None done Imaging None done Pending results at discharge: No Medications # of Antipsychotic meds at D/C: 1 Approp Antipsych med options 1 - Minimum of three failed multiple trials of monotherapy. 2 - Documented plan to taper to monotherapy due to previous use of multiple meds OR cross-taper in progress at D/C. 3 - Documentation of augmentation of Clozapine. 4 - Justification other than those listed in allowable values 1-3, document here : Discharge Discharge Date: Apr 05, 2017 Discharge Diagnosis: (1) Atypical bipolar disorder Diagnosis: Principal (stabilized) ICD Code: F31.89 - Other bipolar disorder (2) Mixed personality disorder Diagnosis: Secondary (chronic) ICD Code: F60.89 - Other specific personality disorders Status: Acute Pt Condition on Discharge: Stable Discharge Disposition: Discharge Home Discharge Instructions Diet Instructions: As Tolerated, No Restrictions Activities you can perform: Weight Bearing as [place] Scheduled Appointment: as per counselor's notes New Orders: CBC WITH DIFF - 1 Week New Medications: Clonidine (Catapres) 0.2 Mg Tab 0.2 MG PO DAILY for Mental Health for 1 Day, #1 TAB 0 Refills Order is to update med rec only. Pt has supply at home. Clonidine (Catapres) 0.1 Mg Tab 0.1 MG PO HS for Mental Health for 1 Day, TAB 0 Refills Order is to update med rec only. Pt has supply at home. Clozapine (Clozaril) 25 Mg Tab 50 MG PO HS for Mental Health for 10 Days, TAB 2 Refills Discuss with outpatient provider further adjustment of this agent. Lamotrigine (Lamictal) 100 Mg Tab 100 MG PO Q12HR for Mental Health for 1 Day, TAB 0 Refills Order is to update med rec only. Pt has supply at home. Mirtazapine (Mirtazapine) 15 Mg Tab 30 MG PO HS for Mental Health for 1 Day, TAB 0 Refills Order is to update med rec only. Pt has supply at home. Continued Medications: Clonazepam (Klonopin) 0.5 Mg Tab 1 MG PO TID PRN for ANXIETY, #90 TAB 0 Refills Levothyroxine (Tirosint) 125 Mcg Cap 125 MCG PO DAILY for Thyroid, #30 CAP 0 Refills Ranitidine (Zantac) 150 Mg Tab 150 MG PO BID for Reduce Stomach Acid, #60 TAB 0 Refills Discontinued Medications: Benztropine (Benztropine) 1 Mg Tab 1 MG PO BID for Side effect management for 15 Days, TAB 1 Refill Gabapentin (Gabapentin) 100 Mg Cap 200 MG PO BID, #60 CAP 0 Refills Ondansetron (Zofran) 4 Mg Tab 4 MG PO Q6HR PRN for NAUSEA OR VOMITING, #12 TAB 0 Refills Zolpidem (Ambien) 5 Mg Tab 5 MG PO HS PRN for INSOMNIA, TAB 0 Refills Discharge Time > 30 minutes Mental Status Examination Appearance: Appropriate Consciousness: Alert Orientation: x4 Motor Activity: Normal gait, Other (no hand tremor, no cogwheeling, no dystonias, no dyskinesias noted. No other abnormal motor movements noted.) Speech: Unremarkable Language: Adequate Fund of Knowledge: Adequate Attention and Concentration: Adequate Memory: Unremarkable Mood: Appropriate (improved versus admission) Affect: Appropriate Thought Process & Associations: Logical, Goal directed, Linear Thought Content: Appropriate Hallucination Type: None Delusion Type: None Suicidal Ideation: No Suicidal Plan: No Suicidal Intention: No Homicidal Ideation: No Homicidal Plan: No Homicidal Intention: No Insight: Fair Judgment: Impulsive (chronic) Discharge/Advance Care Plan Health Problems: (1) Atypical bipolar disorder (2) Mixed personality disorder Goals to promote your health * To prevent worsening of your condition and complications * To maintain your health at the optimal level Directions to meet your goals Take your medications as prescribed Follow your dietary instruction Follow activity as directed Keep your appointments as scheduled Take your immunizations and boosters as scheduled If your symptoms worsen call your PCP, if no PCP go to Urgent Care Center or Emergency Room For 24/ questions related to your inpatient stay or results of tests pending at discharge, please contact Dr. Messi Miguel at Smoking is Dangerous to Your Health. Avoid second hand smoking Messi Miguel MD Apr 05, 2017 09:07
[2017-04-05] MEDS: lamoTRIgine 100 MG TAB PO SCH (09:08)
[2017-04-05] MEDS: clonazePAM 1 MG TAB PO SCH (09:08)
[2017-04-05] MEDS: THYROID 60 MG TAB PO SCH (09:08)
[2017-04-05] MEDS: cloNIDine HCL 0.2 MG TAB PO SCH (09:08)
[2017-04-05 11:53] LABS: AUTOMATED NEUTROPHIL # 3.1 TH/MM3 (1.8-7.7); BASOPHIL # 0.1 TH/MM3 (0-0.2); BASOPHIL % 1.1 % (0.0-2.0); EOSINOPHIL # 0.2 TH/MM3 (0-0.4); EOSINOPHIL % 2.9 % (0.0-4.0); HEMATOCRIT 40.6 % (39.0-51.0); HEMO FLAGS DIFF FINAL; LYMPH % 33.4 % (9.0-44.0); MEAN CELL VOLUME 84.4 FL (80.0-100.0); MEAN CORPUSCULAR HEMOGLOBIN 27.8 PG (27.0-34.0); NEUT % 51.6 % (16.0-70.0); PLATELET COUNT 208 TH/MM3 (150-450); RED CELL DISTRIBUTION WIDTH 15.4 % (11.6-17.2); WHITE BLOOD COUNT 6.1 TH/MM3 (4.0-11.0)
== END 2017-04-05 14:10 | disposition home or self-care (01) | DRG 885 ==
LOC: NEPD 15:05 → NEDA 04-01 16:07 → H270 04-01 17:40
PROVIDERS: ADMIT Psychiatry & Neurology Psychiatry; ATTEND Psychiatry & Neurology Psychiatry
DX: F31.89 Other bipolar disorder (principal); F84.0 Autistic disorder; T42.4X2A Poisoning by benzodiazepines, intentional self-harm, initial encounter; F60.89 Other specific personality disorders; F20.9 Schizophrenia, unspecified; F90.9 Attention-deficit hyperactivity disorder, unspecified type; F41.9 Anxiety disorder, unspecified; E06.3 Autoimmune thyroiditis; F12.90 Cannabis use, unspecified, uncomplicated; Z91.5 Personal history of self-harm
CPT/HCPCS: 80048; 80061; 80307; 83036; 84443; 85025; 93005

== ENCOUNTER 2017-06-21 16:18 | Emergency (ER) | payer BC ==
[~2017-06-21 16:18] MED LIST changes: -AMBI5TAB PO; -BENZ1TAB PO; +CLON.1 PO; +CLON.2 PO; +CLOZ25TA PO; -GABA100C4 PO; +LAMO100 PO; +MIRTA15 PO; -ZOFR4TAB PO
[2017-06-21 16:21] VITALS: BP 135/74; PULSE 113; RESP 20; TEMP 98.6; O2SAT 98
[2017-06-21 17:26] LABS: BILIRUBIN, URINE NEG (NEG); BLOOD, URINE TRACE (NEG); GLUCOSE,URINE NEG (NEG); KETONE, URINE TRACE mg/dL (NEG); NITRITE,URINE NEG (NEG); URINE LEUKOCYTE ESTERASE NEG (NEG)
[2017-06-21] MEDS ORDERED: SODIUM CHLOR 0.9% 1000 ML INJ 1,000 ML IV SCH (17:27)
[2017-06-21] MEDS ORDERED: ONDANSETRON HCL 4 MG/2 ML VIAL IVP ONE (17:30)
[2017-06-21] MEDS ORDERED: SODIUM CHLORIDE 0.9% FLUSH 10 ML FLUSH IV FLUSH PRN (17:30)
[2017-06-21] MEDS ORDERED: KETOROLAC TROMETHAMINE 30 MG/ML (IVP) VIAL IVP ONE (17:30)
[2017-06-21 17:55] LABS: URINE COLOR YELLOW (YELLW/STRAW)
[2017-06-21 17:56] VITALS: O2SAT 99
[2017-06-21 17:57] LABS: MUCUS URINE MOD /lpf (OCC); SQUAMOUS EPITHELIAL CELL URINE 0-5 /hpf (0-5)
[2017-06-21 18:01] LABS: AUTOMATED NEUTROPHIL # 5.8 TH/MM3 (1.8-7.7); BASOPHIL # 0.1 TH/MM3 (0-0.2); BASOPHIL % 0.7 % (0.0-2.0); EOSINOPHIL # 0.1 TH/MM3 (0-0.4); EOSINOPHIL % 1.5 % (0.0-4.0); HEMATOCRIT 40.4 % (39.0-51.0); HEMOGLOBIN 12.9 GM/DL (13.0-17.0); LYMPHOCYTE # 1.9 TH/MM3 (1.0-4.8); MEAN CELL VOLUME 83.2 FL (80.0-100.0); MEAN CORPUSCULAR HEMOGLOBIN 26.6 PG (27.0-34.0); MEAN PLATELET VOLUME 8.6 FL (7.0-11.0); MONOCYTE # 0.7 TH/MM3 (0-0.9); NEUT % 67.8 % (16.0-70.0); PLATELET COUNT 252 TH/MM3 (150-450); RED BLOOD COUNT 4.85 MIL/MM3 (4.50-5.90); RED CELL DISTRIBUTION WIDTH 14.8 % (11.6-17.2); WHITE BLOOD COUNT 8.6 TH/MM3 (4.0-11.0)
[2017-06-21 18:09] LABS: CHLORIDE 106 MEQ/L (98-107); SODIUM (NA) 140 MEQ/L (136-145)
[2017-06-21 18:12] LABS: ALBUMIN 3.6 GM/DL (3.4-5.0); BICARBONATE 26.2 MEQ/L (21.0-32.0); CALCIUM 8.6 MG/DL (8.5-10.1); GLUCOSE,RANDOM 94 MG/DL (74-106)
[2017-06-21 18:13] LABS: BLOOD UREA NITROGEN 15 MG/DL (7-18)
[2017-06-21] MEDS ORDERED: CLOZ100T PO (18:13)
[2017-06-21] MEDS ORDERED: XANA2TAB PO (18:13)
[2017-06-21 18:15] LABS: ALT (GPT) 47 U/L (9-52); AST (GOT) 26 U/L (15-39); CREATININE 0.77 MG/DL (0.60-1.30); GLOMERULAR FILTRATION RATE 129 ML/MIN (>89)
[2017-06-21 18:17] LABS: TOTAL BILIRUBIN ADULT 0.3 MG/DL (0.2-1.0); TOTAL PROTEIN 7.2 GM/DL (6.4-8.2)
[2017-06-21 18:18] LABS: ALKALINE PHOSPHATASE 107 U/L (45-117)
[2017-06-21 18:25] VITALS: BP 119/77; PULSE 84; RESP 16; O2SAT 97
--- NOTE | 2017-06-21 18:48 | RADRPT ---
EXAM DATE/TIME: 06/21/2017 18:19 [place] COMPARISON: CT ABDOMEN & PELVIS W/O CONTRAST, July 04, 2015, 14:26. INDICATIONS : Bilateral flank pain and hematuria. ORAL CONTRAST: No oral contrast ingested. RADIATION DOSE: 24.40 CTDIvol (mGy) MEDICAL HISTORY : None SURGICAL HISTORY : None. ENCOUNTER: Initial ACUITY: 1 day PAIN SCALE: 4/10 LOCATION: Bilateral flank TECHNIQUE: Volumetric scanning of the abdomen and pelvis was performed. Using automated exposure control and ad justment of the mA and/or kV according to patient size, radiation dose was kept as low as reasonably achievable to obtain optimal diagnostic quality images. DICOM format image data is available electro nically for review and comparison. FINDINGS: LOWER LUNGS: The visualized lower lungs are clear. LIVER: Homogeneous density without lesion. There is no dilation of the biliary tree. No calcified gallston es. SPLEEN: Normal size without lesion. PANCREAS: Within normal limits. KIDNEYS: Normal in size and shape. There is no mass, stone, or hydronephrosis. ADRENAL GLANDS: Within normal limits. VASCULAR: There is no aortic aneurysm. BOWEL/MESENTERY: The stomach, small bowel, and colon demonstrate no acute abnormality. There is no free intraperitone al air or fluid. ABDOMINAL WALL: Within normal limits. RETROPERITONEUM: There is no lymphadenopathy. BLADDER: No wall thickening or mass. REPRODUCTIVE: Within normal limits. INGUINAL: There is no lymphadenopathy or hernia. MUSCULOSKELETAL: Within normal limits for patient age. CONCLUSION: Normal examination. Gaurang Murphy Jr., MD on June 21, 2017 at 18:42 Board Certified Radiologist. This report was verified electronically.
[2017-06-21 18:58] VITALS: RESP 17
--- NOTE | 2017-06-21 19:06 | PD ---
HPI Chief Complaint: Flank/Kidney Pain Time Seen by Provider: 17:19 Travel History International Travel<30 days: No Contact w/Intl Traveler<30days: No Traveled to known affect area: No History of Present Illness HPI Patient is a 22-year-old male comes in complaining of burning on urination as well as back pain. He says he went to urgent care and they told him he had blood in his urine and he should come to the emergency department. He denies fever or chills. He denies nausea or vomiting. He says he had this in the past and was told he has a UTI. He denies any penile discharge. He says that he has not been sexually active in over a year. He has been taking ibuprofen for pain relief. Nothing seems to make the pain worse. PFSH Past Medical History ADD: Yes ADHD: Yes Arthritis: No Asthma: No Autoimmune Disease: Yes (hashimotos) Bipolar Disorder: Yes Weight (Kg): 3 Anxiety: Yes Depression: Yes Heart Rhythm Problems: No Cancer: No Cardiovascular Problems: No High Cholesterol: No Chemotherapy: No Chest Pain: No Congestive Heart Failure: No COPD: No Cerebrovascular Accident: No Diabetes: No Diminished Hearing: No Endocrine: Yes Gastrointestinal Disorders: No GERD: No Genitourinary: No Headaches: Yes Hiatal Hernia: No Immune Disorder: No Implanted Vascular Access Dvce: No Kidney Stones: No Musculoskeletal: No Neurologic: No Psychiatric: Yes (Hx of treatment for Bipolar Disorder) Reproductive: No Respiratory: No Immunizations Current: Yes Migraines: No Radiation Therapy: No Renal Failure: No Schizophrenia: Yes Seizures: No Sickle Cell Disease: No Sleep Apnea: No Thyroid Disease: Yes Ulcer: No Past Surgical History Abdominal Surgery: No AICD: No Arteriovenous Shunt: No Cardiac Surgery: No Section: No Ear Surgery: No Endocrine Surgery: No Eye Surgery: No Genitourinary Surgery: No Gynecologic Surgery: No Insulin Pump: No Joint Replacement: No Oral Surgery: No Pacemaker: No Thoracic Surgery: No Social History Alcohol Use: Yes Tobacco Use: Yes Substance Use: No Allergies-Medications (Allergen,Severity, Reaction): Coded Allergies: No Known Allergies (Unverified Adverse Reaction, Unknown, 06/21/17) Reported Meds & Prescriptions Reported Meds & Active Scripts Active Reported Xanax Xr 24 HR (Alprazolam) 2 Mg Tab 2 Mg PO DAILY Take tablet intact, preferably in the morning. Clozaril (Clozapine) 100 Mg Tab 400 Mg PO HS Review of Systems Except as stated in HPI: all other systems reviewed are Neg General / Constitutional: No: Fever, Chills HENT: No: Headaches, Lightheadedness Cardiovascular: No: Chest Pain or Discomfort Respiratory: No: Shortness of Breath Gastrointestinal: Positive: Abdominal Pain, No: Nausea, Vomiting Genitourinary: Positive: Dysuria, Flank Pain Musculoskeletal: No: Myalgias Skin: No Rash Neurologic: No: Weakness, Dizziness Physical Exam Narrative GENERAL: Awake and alert, in no acute distress. SKIN: Focused skin assessment warm/dry. HEAD: Atraumatic. Normocephalic. EYES: Pupils equal and round. No scleral icterus. ENT: Mucous membranes pink and moist. NECK: Trachea midline. No JVD. CARDIOVASCULAR: Regular rate and rhythm. No murmur appreciated. RESPIRATORY: No accessory muscle use. Clear to auscultation. Breath sounds equal bilaterally. GASTROINTESTINAL: Abdomen soft, nondistended. Tender to palpation of the suprapubic area. No rebound or guarding. No CVA tenderness. MUSCULOSKELETAL: No obvious deformities. No clubbing. No cyanosis. No edema. NEUROLOGICAL: Awake and alert. No obvious cranial nerve deficits. Motor grossly within normal limits. Normal speech. PSYCHIATRIC: Appropriate mood and affect; insight and judgment normal. Data Data Last Documented VS Vital Signs Date Time Temp Pulse Resp B/P (MAP) Pulse Ox O2 Delivery O2 Flow Rate FiO2 06/21/17 18:25 84 16 119/77 (91) 97 Room Air 06/21/17 16:21 98.6 Orders Orders Urinalysis - C+S If Indicated (06/21/17 16:21) Complete Blood Count With Diff (06/21/17 17:27) Comprehensive Metabolic Panel (06/21/17 17:27) Ct Abd/Pel W/O Iv Contrast (06/21/17 17:27) Iv Access Insert/Monitor (06/21/17 17:27) Ecg Monitoring (06/21/17 17:27) Oximetry (06/21/17 17:27) Ondansetron Inj (Zofran Inj) (06/21/17 17:30) Sodium Chlor 0.9% 1000 Ml Inj (Ns 1000 M (06/21/17 17:27) Sodium Chloride 0.9% Flush (Ns Flush) (06/21/17 17:30) Ketorolac Inj (Toradol Inj) (06/21/17 17:30) Labs Laboratory Tests Test 06/21/17 17:05 06/21/17 17:50 Urine Color YELLOW Urine Turbidity CLEAR Urine pH 6.0 Urine Specific [place] GREATER THAN 1.035 Urine Protein NEG mg/dL Urine Glucose (UA) NEG mg/dL Urine Ketones TRACE mg/dL Urine Occult Blood TRACE Urine Nitrite NEG Urine Bilirubin NEG Urine Leukocyte Esterase NEG Urine RBC 4-9 /hpf Urine Squamous Epithelial Cells 0-5 /hpf Urine Mucus MOD /lpf Microscopic Urinalysis Comment CULT NOT INDICATED White Blood Count 8.6 TH/MM3 Red Blood Count 4.85 MIL/MM3 Hemoglobin 12.9 GM/DL Hematocrit 40.4 % Mean Corpuscular Volume 83.2 FL Mean Corpuscular Hemoglobin 26.6 PG Mean Corpuscular Hemoglobin Concent 32.0 % Red Cell Distribution Width 14.8 % Platelet Count 252 TH/MM3 Mean Platelet Volume 8.6 FL Neutrophils (%) (Auto) 67.8 % Lymphocytes (%) (Auto) 22.0 % Monocytes (%) (Auto) 8.0 % Eosinophils (%) (Auto) 1.5 % Basophils (%) (Auto) 0.7 % Neutrophils # (Auto) 5.8 TH/MM3 Lymphocytes # (Auto) 1.9 TH/MM3 Monocytes # (Auto) 0.7 TH/MM3 Eosinophils # (Auto) 0.1 TH/MM3 Basophils # (Auto) 0.1 TH/MM3 CBC Comment DIFF FINAL Differential Comment Blood Urea Nitrogen 15 MG/DL Creatinine 0.77 MG/DL Random Glucose 94 MG/DL Total Protein 7.2 GM/DL Albumin 3.6 GM/DL Calcium Level 8.6 MG/DL Alkaline Phosphatase 107 U/L Aspartate Amino Transf (AST/SGOT) 26 U/L Alanine Aminotransferase (ALT/SGPT) 47 U/L Total Bilirubin 0.3 MG/DL Sodium Level 140 MEQ/L Potassium Level 3.8 MEQ/L Chloride Level 106 MEQ/L Carbon Dioxide Level 26.2 MEQ/L Anion Gap 8 MEQ/L Estimat Glomerular Filtration Rate 129 ML/MIN [facility] Medical Decision Making Medical Screen Exam Complete: Yes Emergency Medical Condition: Yes Medical Record Reviewed: Yes Differential Diagnosis UTI versus renal stone versus muscle strain versus hematuria Narrative Course Patient is a 22-year-old male comes in complaining of dysuria and back pain. Exam shows suprapubic tenderness. IV established, labs sent. Labs show no acute abnormalities. Urinalysis shows trace hematuria. CT abdomen and pelvis performed shows no evidence of renal stone, no acute abnormalities. Last 24 hours Impressions Abdomen/Pelvis CT 06/21/17 1727 Signed Impressions: Service Date/Time: Wednesday, June 21, 2017 18:19 - CONCLUSION: Normal examination. Gaurang Murphy Jr., MD Patient given IV fluids, Toradol. He reports feeling better. Patient be discharged home. Advised follow-up with urology. Offered treatment and testing for gonorrhea and chlamydia, however he declined saying that he has not been exposed the says he has not had sex in a very long time. Diagnosis Primary Impression: Hematuria Qualified Codes: R31.9 - Hematuria, unspecified Referrals: Donaldo Rutledge MD call for appointment Patient Instructions: General Instructions, Hematuria (ED) Additional Instructions: Follow-up with urology. Drink any fluids. Return to the ED as needed for any worsening symptoms. Disposition: 01 DISCHARGE HOME Condition: Stable Josefa Isidro MD Jun 21, 2017 19:06
== END 2017-06-21 19:26 | disposition home or self-care (01) ==
LOC: PHED 16:18
DX: R31.9 Hematuria, unspecified (principal); F90.9 Attention-deficit hyperactivity disorder, unspecified type; E06.3 Autoimmune thyroiditis; F31.9 Bipolar disorder, unspecified; F20.9 Schizophrenia, unspecified; Z72.0 Tobacco use; Z79.899 Other long term (current) drug therapy
CPT/HCPCS: 74176; 80053; 81001; 85025; 96361; 96374; 96375; 99284; J1885; J2405; J7030

== ENCOUNTER 2017-10-02 11:25 | Inpatient (IN) | payer BC ==
[~2017-10-02] VITALS: Ht 177.8 cm; Wt 110.3 kg
[2017-10-02] VITALS (10 sets, daily range): BP systolic 91–144; BP diastolic 54–66; PULSE 81–138; RESP 16–20; TEMP 98.7–103; O2SAT 92–96
[~2017-10-02 11:25] MED LIST changes: -CLON.1 PO; -CLON.2 PO; -CLON.5 PO; +CLOZ100T PO; -CLOZ25TA PO; -LAMO100 PO; -MIRTA15 PO; -TIRO125C PO; +XANA2TAB PO; -ZANT150T2 PO
[2017-10-02] MEDS ORDERED: PRIS50TA PO (11:50)
[2017-10-02] MEDS ORDERED: LEVO750T3 PO (11:50)
[2017-10-02] MEDS ORDERED: OSEL75 PO (11:50)
[2017-10-02] MEDS ORDERED: SODIUM CHLOR 0.9% 1000 ML INJ 1,000 ML IV ONE ×3 (11:57)
[2017-10-02] MEDS ORDERED: SODIUM CHLOR 0.9% 1000 ML INJ 300 ML IV ONE (11:57)
[2017-10-02] MEDS ORDERED: ACETAMINOPHEN 325 MG TAB PO ONE (12:00)
--- NOTE | 2017-10-02 12:12 | PD ---
HPI Chief Complaint: Cold / Flu Symptoms Time Seen by Provider: 11:47 Travel History International Travel<30 days: No Contact w/Intl Traveler<30days: No Traveled to known affect area: No History of Present Illness HPI Patient is a 22-year-old male with history of bipolar disorder who presents the emergency room for evaluation of cold/cough/influenza. Patient reports that for the past 3 days, he has had a productive cough, fevers, chills, headaches, reports that he was seen at [facility] urgent care center and was diagnosed with multilobar pneumonia as well as influenza. Patient was started on Tamiflu as well as Levaquin 750 mg. Patient reports that he has been taking his medications daily, he did not take his medications this morning as he has been feeling nauseous. Patient reports that despite taking Tamiflu and Levaquin , he is feeling worse and is not getting any better. He did receive the flu vaccine this year, denies any medical problems. Denies history of smoking. Reports that he has had pneumonia in the past. Patient did not take any antipyretics this morning. Denies any sick contacts. PFSH Past Medical History ADD: Yes ADHD: Yes Arthritis: No Asthma: No Autoimmune Disease: Yes (hashimotos) Bipolar Disorder: Yes (type 1 ) Weight (Kg): 3 Anxiety: Yes Depression: Yes Heart Rhythm Problems: No Cancer: No Cardiovascular Problems: No High Cholesterol: No Chemotherapy: No Chest Pain: No Congestive Heart Failure: No COPD: No Cerebrovascular Accident: No Diabetes: No Diminished Hearing: No Endocrine: Yes Gastrointestinal Disorders: No GERD: No Genitourinary: No Headaches: Yes Hiatal Hernia: No Immune Disorder: No Implanted Vascular Access Dvce: No Kidney Stones: No Musculoskeletal: No Neurologic: No Psychiatric: Yes (Hx of treatment for Bipolar Disorder) Reproductive: No Respiratory: No Immunizations Current: Yes Migraines: No Radiation Therapy: No Renal Failure: No Schizophrenia: Yes Seizures: No Sickle Cell Disease: No Sleep Apnea: No Thyroid Disease: Yes (hashimotos) Ulcer: No Tetanus Vaccination: > 5 Years Influenza Vaccination: Yes ?: Not Past Surgical History Surgical History: No Previous Surgery Abdominal Surgery: No AICD: No Arteriovenous Shunt: No Cardiac Surgery: No Section: No Ear Surgery: No Endocrine Surgery: No Eye Surgery: No Genitourinary Surgery: No Gynecologic Surgery: No Insulin Pump: No Joint Replacement: No Oral Surgery: No Pacemaker: No Thoracic Surgery: No Social History Alcohol Use: No Tobacco Use: No Substance Use: No Allergies-Medications (Allergen,Severity, Reaction): Coded Allergies: No Known Allergies (Verified Adverse Reaction, Unknown, 10/02/17) Reported Meds & Prescriptions Reported Meds & Active Scripts Active Reported Levofloxacin 750 Mg Tablet 750 Mg PO DAILY Tamiflu (Oseltamivir Phosphate) 75 Mg Cap 75 Mg PO DAILY Pristiq 24 HR (Desvenlafaxine ER 24 HR) 50 Mg Tab 50 Mg PO DAILY Xanax Xr 24 HR (Alprazolam) 2 Mg Tab 2 Mg PO DAILY Take tablet intact, preferably in the morning. Clozaril (Clozapine) 100 Mg Tab 400 Mg PO HS Review of Systems General / Constitutional: Positive: Fever, Chills Eyes: No: Visual changes HENT: Positive: Headaches, No: Neck Stiffness, Neck Pain Cardiovascular: No: Chest Pain or Discomfort Respiratory: Positive: Cough, No: Shortness of Breath, Wheezing Gastrointestinal: Positive: Nausea, Vomiting, No: Diarrhea, Abdominal Pain Genitourinary: No: Dysuria Musculoskeletal: No: Pain Skin: No Rash Neurologic: No: Weakness Psychiatric: No: Depression Endocrine: No: Polydipsia Hematologic/Lymphatic: No: Easy Bruising Physical Exam Narrative GENERAL: moderate distress SKIN: Focused skin assessment warm/diaphoretic HEAD: Atraumatic. Normocephalic. EYES: Pupils equal and round. No scleral icterus. No injection or drainage. ENT: No nasal bleeding or discharge. Mucous membranes pink and moist. NECK: Trachea midline. No JVD. CARDIOVASCULAR: Tachycardia. No murmur appreciated. RESPIRATORY: No accessory muscle use. Clear to auscultation. Breath sounds equal bilaterally. GASTROINTESTINAL: Abdomen soft, non-tender, nondistended. Hepatic and splenic margins not palpable. MUSCULOSKELETAL: No obvious deformities. No clubbing. No cyanosis. No edema. NEUROLOGICAL: Awake and alert. No obvious cranial nerve deficits. Motor grossly within normal limits. Normal speech. PSYCHIATRIC: Appropriate mood and affect; insight and judgment normal. Data Data Last Documented VS Vital Signs Date Time Temp Pulse Resp B/P (MAP) Pulse Ox O2 Delivery O2 Flow Rate FiO2 10/02/17 13:52 99.9 111 18 91/57 (68) 95 Room Air Orders Orders Sepsis Workup Initiated (10/02/17 ) Complete Blood Count With Diff (10/02/17 11:57) Comprehensive Metabolic Panel (10/02/17 11:57) Lactic Acid Sepsis Protocol (10/02/17 11:57) Urinalysis - C+S If Indicated (10/02/17 11:57) Influenzae A/B Antigen (10/02/17 11:57) Blood Culture (10/02/17 11:57) Chest, Single Ap (10/02/17 11:57) Ecg Monitoring (10/02/17 11:57) Iv Access Insert/Monitor (10/02/17 11:57) Oximetry (10/02/17 11:57) Acetaminophen (Tylenol) (10/02/17 12:00) Sodium Chlor 0.9% 1000 Ml Inj (Ns 1000 M (10/02/17 11:57) Sodium Chlor 0.9% 1000 Ml Inj (Ns 1000 M (10/02/17 11:57) Sodium Chlor 0.9% 1000 Ml Inj (Ns 1000 M (10/02/17 11:57) Sodium Chlor 0.9% 1000 Ml Inj (Ns 1000 M (10/02/17 11:57) Azithromycin Inj (Zithromax Inj) (10/02/17 12:15) Ceftriaxone Inj (Rocephin Inj) (10/02/17 12:15) Ondansetron Inj (Zofran Inj) (10/02/17 12:30) Potassium Chlor 20 Meq Premix (Kcl 20 Me (10/02/17 13:45) Admit Order (Ed Use Only) (10/02/17 14:07) Labs Laboratory Tests Test 10/02/17 12:10 White Blood Count 8.2 TH/MM3 Red Blood Count 4.89 MIL/MM3 Hemoglobin 13.7 GM/DL Hematocrit 41.7 % Mean Corpuscular Volume 85.4 FL Mean Corpuscular Hemoglobin 27.9 PG Mean Corpuscular Hemoglobin Concent 32.7 % Red Cell Distribution Width 14.1 % Platelet Count 167 TH/MM3 Mean Platelet Volume 9.0 FL Neutrophils (%) (Auto) 89.1 % Lymphocytes (%) (Auto) 3.9 % Monocytes (%) (Auto) 6.4 % Eosinophils (%) (Auto) 0.2 % Basophils (%) (Auto) 0.4 % Neutrophils # (Auto) 7.4 TH/MM3 Lymphocytes # (Auto) 0.3 TH/MM3 Monocytes # (Auto) 0.5 TH/MM3 Eosinophils # (Auto) 0.0 TH/MM3 Basophils # (Auto) 0.0 TH/MM3 CBC Comment DIFF FINAL Differential Comment Blood Urea Nitrogen 12 MG/DL Creatinine 1.10 MG/DL Random Glucose 147 MG/DL Total Protein 7.9 GM/DL Albumin 3.8 GM/DL Calcium Level 9.0 MG/DL Alkaline Phosphatase 92 U/L Aspartate Amino Transf (AST/SGOT) 17 U/L Alanine Aminotransferase (ALT/SGPT) 26 U/L Total Bilirubin 0.5 MG/DL Sodium Level 138 MEQ/L Potassium Level 3.1 MEQ/L Chloride Level 105 MEQ/L Carbon Dioxide Level 25.4 MEQ/L Anion Gap 8 MEQ/L Estimat Glomerular Filtration Rate 85 ML/MIN Lactic Acid Level 2.2 mmol/L MDM Medical Decision Making Medical Screen Exam Complete: Yes Emergency Medical Condition: Yes Medical Record Reviewed: Yes Interpretation(s) Vital Signs Date Time Temp Pulse Resp B/P (MAP) Pulse Ox O2 Delivery O2 Flow Rate FiO2 10/02/17 11:35 103.0 138 20 144/65 (91) 94 Differential Diagnosis Influenza, pneumonia, viral syndrome, electrolyte abnormality Narrative Course Patient is a 22-year-old male who presents the emergency room with complaints of fever, chills, cough, uri for the past 3 days. For the past 2 days, he has been taking Tamiflu as well as Levaquin prescribed by an urgent care center. Patient is not feeling better and is getting worse symptomatically. Patient is tachycardic with a heart rate in the 130s, patient is febrile with a temperature of 103, patient does meet SIRS criteria, a sepsis workup was initiated. Patient does report that he did not take his dose of Levaquin today , plan to start him on azithromycin as well as ceftriaxone as I do believe the source of infection is in his lungs. He did have a chest xray 2 days ago which showed a double pneumonia. He is also hypoxic with a pulse ox of 94% on room air During the course of the patients emergency department visit, the patients history, examination, and differential diagnosis were reviewed with the patient. The patient was placed on a compliance monitor with oximetry and frequent blood pressure monitoring. The patient had an IV access obtained and blood work sent for analysis. The patient was initially provided IV fluids, acetaminophen for fever. The patients laboratory studies were reviewed and remarkable for CBC & BMP Diagram 10/02/17 12:10 Total Protein 7.9, Albumin 3.8, Calcium Level 9.0, Alkaline Phosphatase 92, Aspartate Amino Transf (AST/SGOT) 17, Alanine Aminotransferase (ALT/SGPT) 26, Total Bilirubin 0.5 Potassium is 3.1, this was repleted with 20mg IV over 2 hours x 2 Lactate 2.2 - Patient has received 30cc/kg of IVF as well as rocephin and azithromycin Radiology studies were reviewed and remarkable for Last Impressions Chest X-Ray 10/02/17 1157 Signed Impressions: Service Date/Time: Wednesday, October 02, 2017 12:01 - CONCLUSION: Diminished lung volumes. Yves Good MD Patient with persistent tachycardia and hypoxia with a pulse ox of 94% on room air, patient with most likely pneumonia as he did have pneumonia on his x-ray 2 days ago. X-ray from today shows diminished lung volumes which cannot visualize any obvious infiltrates. Given his symptoms, plan to observe him in the hospital for IV fluid hydration and antibiotics. Case reviewed with Dr. Castro who accepts pt to service Sepsis Criteria SIRS Criteria (2 or more): Temp > 100.9 or < 96.8, Heart rate over 90 Severe Sepsis (+one): Lactate >2 Criteria Outcome: Meets SIRS criteria Diagnosis Primary Impression: Hypokalemia Additional Impression: Sepsis Qualified Codes: A41.9 - Sepsis, unspecified organism Admitting Information Admitting Physician Requests: Observation Rosa Adams DO Oct 02, 2017 12:12
[2017-10-02] MEDS ORDERED: AZITHROMYCIN INJ 500 MG in SODIUM CHLOR 0.9% 250 ML INJ 250 ML IV ONE (12:15)
[2017-10-02] MEDS ORDERED: cefTRIAXone INJ 1,000 MG in SODIUM CHLORIDE 0.9% INJ 100 ML IV ONE (12:15)
--- NOTE | 2017-10-02 12:25 | RADRPT ---
EXAM DATE/TIME: 10/02/2017 12:01 [place] COMPARISON: No previous studies available for comparison. INDICATIONS : Cough. Short of breath. MEDICAL HISTORY : None. SURGICAL HISTORY : None. ENCOUNTER: Initial ACUITY: 3 days PAIN SCORE: 0/10 LOCATION: Bilateral chest FINDINGS: The lung volumes are markedly diminished. There are atelectatic changes at the bases. Heart size norm al. No definite consolidation. Osseous structures are intact. CONCLUSION: Diminished lung volumes. Yves Good MD on October 02, 2017 at 12:22 Board Certified Radiologist. This report was verified electronically.
[2017-10-02 12:29] LABS: AUTOMATED NEUTROPHIL # 7.4 TH/MM3 (1.8-7.7); BASOPHIL % 0.4 % (0.0-2.0); EOSINOPHIL % 0.2 % (0.0-4.0); HEMATOCRIT 41.7 % (39.0-51.0); HEMOGLOBIN 13.7 GM/DL (13.0-17.0); LYMPH % 3.9 % (9.0-44.0); LYMPHOCYTE # 0.3 TH/MM3 (1.0-4.8); MEAN CELL VOLUME 85.4 FL (80.0-100.0); MEAN CORPUSCULAR HEMOGLOBIN 27.9 PG (27.0-34.0); MEAN CORPUSCULAR HGB CONC 32.7 % (32.0-36.0); MONO % 6.4 % (0.0-8.0); MONOCYTE # 0.5 TH/MM3 (0-0.9); NEUT % 89.1 % (16.0-70.0); PLATELET COUNT 167 TH/MM3 (150-450); RED BLOOD COUNT 4.89 MIL/MM3 (4.50-5.90); RED CELL DISTRIBUTION WIDTH 14.1 % (11.6-17.2); WHITE BLOOD COUNT 8.2 TH/MM3 (4.0-11.0)
[2017-10-02] MEDS ORDERED: ONDANSETRON HCL 4 MG/2 ML VIAL IV PUSH ONE (12:30)
[2017-10-02 12:39] LABS: CHLORIDE 105 MEQ/L (98-107); SODIUM (NA) 138 MEQ/L (136-145)
[2017-10-02 12:43] LABS: ALBUMIN 3.8 GM/DL (3.4-5.0); BICARBONATE 25.4 MEQ/L (21.0-32.0); BLOOD UREA NITROGEN 12 MG/DL (7-18); GLUCOSE,RANDOM 147 MG/DL (74-106)
[2017-10-02 12:46] LABS: ALT (GPT) 26 U/L (9-52); AST (GOT) 17 U/L (15-39); GLOMERULAR FILTRATION RATE 85 ML/MIN (>89)
[2017-10-02 12:48] LABS: TOTAL BILIRUBIN ADULT 0.5 MG/DL (0.2-1.0); TOTAL PROTEIN 7.9 GM/DL (6.4-8.2)
[2017-10-02 12:49] LABS: ALKALINE PHOSPHATASE 92 U/L (45-117)
[2017-10-02 12:50] LABS: LACTIC ACID SEPSIS PROTOCOL 2.2 mmol/L (0.4-2.0)
[2017-10-02] MEDS ORDERED: NALOXONE HCL 0.4 MG/ML AMP IV PUSH PRN (14:15)
[2017-10-02] MEDS ORDERED: ACETAMINOPHEN/HYDROcodone 325 MG/10 MG TAB PO PRN (14:15)
[2017-10-02] MEDS ORDERED: SODIUM CHLORIDE 0.9% FLUSH 10 ML FLUSH IV FLUSH PRN (14:15)
[2017-10-02] MEDS ORDERED: ACETAMINOPHEN/HYDROcodone 325 MG/5 MG TAB PO PRN (14:15)
[2017-10-02] MEDS: POTASSIUM CHLOR 20 MEQ PREMIX 100 ML IV SCH ×2 (14:21→17:43)
[2017-10-02 14:23] LABS: BILIRUBIN, URINE NEG (NEG); BLOOD, URINE MOD (NEG); GLUCOSE,URINE NEG (NEG); KETONE, URINE TRACE mg/dL (NEG); NITRITE,URINE NEG (NEG); PH, URINE 5.5 (5.0-8.5); URINE COLOR YELLOW (YELLW/STRAW); URINE LEUKOCYTE ESTERASE NEG (NEG)
[2017-10-02 14:28] LABS: SQUAMOUS EPITHELIAL CELL URINE 0-5 /hpf (0-5); WBC, URINE 0-2 /hpf (0-5)
--- NOTE | 2017-10-02 14:39 | HHI.HP ---
[facility] Service [facility] Primary Care Physician Liana Pierre MD Admission Diagnosis Sepsis Diagnoses: Travel History International Travel<30 Days: No Contact w/Intl Traveler <30 Da: No Traveled to Known Affected Are: No Review of Systems Constitutional: COMPLAINS OF: Fatigue, Fever, Chills, Night Sweats Eyes: DENIES: Blurred vision, Diplopia, Eye inflammation, Eye pain Ears, nose, mouth, throat: COMPLAINS OF: Nasal discharge, DENIES: Hearing loss , Vertigo Respiratory: COMPLAINS OF: Cough, Sputum production, Shortness of breath Cardiovascular: DENIES: Chest pain, Palpitations, Syncope Gastrointestinal: COMPLAINS OF: Nausea, Vomiting, DENIES: Abdominal pain, Black stools, Bloody stools Musculoskeletal: DENIES: Joint pain, Muscle aches, Stiffness Integumentary: DENIES: Abnormal pigmentation, Nail changes, Pruritus, Rash Hematologic/lymphatic: DENIES: Bruising, Lymphadenopathy Immunologic/allergic: DENIES: Eczema, Urticaria Neurologic: DENIES: Abnormal gait, Headache, Paresthesias Psychiatric: DENIES: Anxiety, Confusion, Hallucinations Past Family Social History Past Medical History ADD/ADHD Type I bipolar disorder General anxiety disorder Depression Schizophrenia Evonne's history History of headaches Past Surgical History None Reported Medications Reported Meds & Active Scripts Active Reported Levofloxacin 750 Mg Tablet 750 Mg PO DAILY Tamiflu (Oseltamivir Phosphate) 75 Mg Cap 75 Mg PO DAILY Pristiq 24 HR (Desvenlafaxine ER 24 HR) 50 Mg Tab 50 Mg PO DAILY Xanax Xr 24 HR (Alprazolam) 2 Mg Tab 2 Mg PO DAILY Take tablet intact, preferably in the morning. Clozaril (Clozapine) 100 Mg Tab 400 Mg PO HS Allergies: Coded Allergies: No Known Allergies (Verified Adverse Reaction, Unknown, 10/02/17) Active Ordered Medications Administered Medications Medications (Trade) Dose Ordered Sig/Inocencio Route PRN Reason Start Time Stop Time Status Last Admin Dose Admin Potassium Chloride 100 ml @ 50 mls/hr Q2H IV 10/02/17 13:45 10/02/17 17:44 10/02/17 14:21 Social History No smoking No illicit drug abuse No alcohol abuse Physical Exam Vital Signs Vital Signs Date Time Temp Pulse Resp B/P (MAP) Pulse Ox O2 Delivery O2 Flow Rate FiO2 10/02/17 13:52 99.9 111 18 91/57 (68) 95 Room Air 10/02/17 12:40 20 92 Room Air 10/02/17 11:50 Room Air 10/02/17 11:50 103.0 138 20 144/65 (91) 94 Room Air 10/02/17 11:35 103.0 138 20 144/65 (91) 94 Physical Exam GENERAL: NAD, A&Ox3 HEAD: Normocephalic. NECK: Supple, trachea midline. No lymphadenopathy. EYES: No scleral icterus. No injection or drainage. CARDIOVASCULAR: Regular rate and rhythm without murmurs, gallops, or rubs. RESPIRATORY: Breath sounds equal bilaterally. No accessory muscle use. GASTROINTESTINAL: Abdomen soft, non-tender, nondistended. MUSCULOSKELETAL: No cyanosis, or edema. SKIN: Warm and dry. NEURO: No focal neurological deficitis. Laboratory Laboratory Tests Test 10/02/17 12:10 10/02/17 14:00 White Blood Count 8.2 Red Blood Count 4.89 Hemoglobin 13.7 Hematocrit 41.7 Mean Corpuscular Volume 85.4 Mean Corpuscular Hemoglobin 27.9 Mean Corpuscular Hemoglobin Concent 32.7 Red Cell Distribution Width 14.1 Platelet Count 167 Mean Platelet Volume 9.0 Neutrophils (%) (Auto) 89.1 Lymphocytes (%) (Auto) 3.9 Monocytes (%) (Auto) 6.4 Eosinophils (%) (Auto) 0.2 Basophils (%) (Auto) 0.4 Neutrophils # (Auto) 7.4 Lymphocytes # (Auto) 0.3 Monocytes # (Auto) 0.5 Eosinophils # (Auto) 0.0 Basophils # (Auto) 0.0 CBC Comment DIFF FINAL Differential Comment Blood Urea Nitrogen 12 Creatinine 1.10 Random Glucose 147 Total Protein 7.9 Albumin 3.8 Calcium Level 9.0 Alkaline Phosphatase 92 Aspartate Amino Transf (AST/SGOT) 17 Alanine Aminotransferase (ALT/SGPT) 26 Total Bilirubin 0.5 Sodium Level 138 Potassium Level 3.1 Chloride Level 105 Carbon Dioxide Level 25.4 Anion Gap 8 Estimat Glomerular Filtration Rate 85 Lactic Acid Level 2.2 Urine Collection Type CATH Urine Color YELLOW Urine Turbidity CLEAR Urine pH 5.5 Urine Specific [place] GREATER/EQUAL 1.030 Urine Protein TRACE Urine Glucose (UA) NEG Urine Ketones TRACE Urine Occult Blood MOD Urine Nitrite NEG Urine Bilirubin NEG Urine Urobilinogen 0.2 Urine Leukocyte Esterase NEG Urine RBC 4-9 Urine WBC 0-2 Urine Squamous Epithelial Cells 0-5 Microscopic Urinalysis Comment CULT NOT INDICATED Urine Collection Time 14:00 Date/Time Source Procedure Growth Status 10/02/17 12:15 Blood Peripheral Aerobic Blood Culture Pending Received 10/02/17 12:15 Blood Peripheral Anaerobic Blood Culture Pending Received 10/02/17 12:10 Nasal Aspirate Influenza Types A,B Antigen (FUAD) - Final NEGATIVE FOR FLU A AND B ANTIGEN.... Complete Result Diagram: 10/02/17 1210 10/02/17 1210 Septic Shock Reassessment Septic shock perfusion: reassessment completed Caprini VTE Risk Assessment Caprini VTE Risk Assessment: No/Low Risk (score <= 1) Caprini Risk Assessment Model Point Value = 1 Point Value = 2 Point Value = 3 Point Value = 5 Age 41-60 Minor surgery BMI > 25 kg/m2 Swollen legs Varicose veins or History of unexplained or recurrent spontaneous Oral contraceptives or hormone replacement Sepsis (< 1 month) Serious lung disease, including pneumonia (< 1 month) Abnormal pulmonary function Acute myocardial infarction Congestive heart failure (< 1 month) History of inflammatory bowel disease Medical patient at bed rest Age 61-74 Arthroscopic surgery Major open surgery (> 45 min) Laparoscopic surgery (> 45 min) Malignancy Confined to bed (> 72 hours) Immobilizing plaster cast Central venous access Age >= 75 History of VTE Family history of VTE Factor V Leiden Prothrombin [id number] Lupus anticoagulant Anticardiolipin antibodies Elevated serum homocysteine Heparin-induced thrombocytopenia Other congenital or acquired thrombophilia Stroke (< 1 month) Elective arthroplasty Hip, pelvis, or leg fracture Acute spinal cord injury (< 1 month) Prophylaxis Regimen Total Risk Factor Score Risk Level Prophylaxis Regimen 0-1 Low Early ambulation 2 Moderate Order ONE of the following: *Sequential Compression Device (SCD) *Heparin 5000 units SQ BID 3-4 Higher Order ONE of the following medications: *Heparin 5000 units SQ TID *Enoxaparin/Lovenox 40 mg SQ daily (WT < 150 kg, CrCl > 30 mL/min) *Enoxaparin/Lovenox 30 mg SQ daily (WT < 150 kg, CrCl > 10-29 mL/min) *Enoxaparin/Lovenox 30 mg SQ BID (WT < 150 kg, CrCl > 30 mL/min) AND/OR *Sequential Compression Device (SCD) 5 or more Highest Order ONE of the following medications: *Heparin 5000 units SQ TID (Preferred with Epidurals) *Enoxaparin/Lovenox 40 mg SQ daily (WT < 150 kg, CrCl > 30 mL/min) *Enoxaparin/Lovenox 30 mg SQ daily (WT < 150 kg, CrCl > 10-29 mL/min) *Enoxaparin/Lovenox 30 mg SQ BID (WT < 150 kg, CrCl > 30 mL/min) AND *Sequential Compression Device (SCD) Assessment and Plan Problem List: (1) Failure of outpatient treatment ICD Code: Z78.9 - Other specified health status (2) Pneumonia ICD Code: J18.9 - Pneumonia, unspecified organism (3) Sepsis ICD Code: A41.9 - Sepsis, unspecified organism Status: Acute (4) Hypokalemia ICD Code: E87.6 - Hypokalemia Status: Acute Assessment and Plan 22-year-old male admitted secondary to sepsis with pneumonia and outpatient treatment failure Sepsis Tachycardia Leukocytosis Fever Pneumonia Outpatient treatment failure IV Hydration Follow vital signs Discontinue Levaquin (failed treatment on levequin) Rocephin Azithromycin Oxygen supplementation Hypokalemia Replace and monitor ADD/ADHD Type I bipolar disorder General anxiety disorder Depression Schizophrenia Evonne's history History of headaches Continue baseline treatments DVT Prophylaxis SCDs Physician Certification 2 Midnight Certification Type: Admission for Inpatient Services Order for Inpatient Services The services are ordered in accordance with Medicare regulations or non- Medicare payer requirements, as applicable. In the case of services not specified as inpatient-only, they are appropriately provided as inpatient services in accordance with the 2-midnight benchmark. Estimated LOS (days): 2 days is the estimated time the patient will need to remain in the hospital, assuming treatment plan goals are met and no additional complications. Post-Hospital Plan: Home Problem Qualifiers (1) Sepsis: Qualified Codes: A41.9 - Sepsis, unspecified organism Ed Castro MD Oct 02, 2017 14:39
[2017-10-02] MEDS ORDERED: MAGNESIUM HYDROXIDE SUSP 30 ML CUP PO PRN (15:00)
[2017-10-02] MEDS ORDERED: TRIH5TAB2 PO (17:24)
[2017-10-02] MEDS ORDERED: ARMO60TA PO (17:24)
[2017-10-02] MEDS: LACTOBACILLUS ACIDOPHILUS TAB PO SCH (17:40)
[2017-10-02] MEDS ORDERED: ONDANSETRON HCL 4 MG/2 ML VIAL IVP PRN (18:00)
[2017-10-02] MEDS ORDERED: DESV50TA4 PO (19:01)
[2017-10-02] MEDS: SODIUM CHLORIDE 0.9% FLUSH 10 ML FLUSH IV FLUSH SCH (21:00)
[2017-10-02] MEDS: guaiFENesin SOLUTION 200 MG/10 ML CUP PO PRN (21:13)
[2017-10-02] MEDS: cloZAPine 100 MG TAB PO SCH (21:14)
[2017-10-02] MEDS: RESP: ALBUTEROL 2.5 MG/IPRATROPIUM 0.5 MG NEB (SCH) NEB (21:33)
[2017-10-03] VITALS (9 sets, daily range): BP systolic 97–136; BP diastolic 57–81; PULSE 73–89; RESP 18–20; TEMP 97.1–98; O2SAT 92–99
[2017-10-03] MEDS: RESP: ALBUTEROL 2.5 MG/IPRATROPIUM 0.5 MG NEB (SCH) NEB ×4 (04:00→20:19)
[2017-10-03] MEDS: ALPRAZolam 0.5 MG TAB PO SCH ×4 (06:00→17:31)
[2017-10-03 07:01] LABS: AUTOMATED NEUTROPHIL # 3.6 TH/MM3 (1.8-7.7); BASOPHIL % 0.7 % (0.0-2.0); EOSINOPHIL # 0.2 TH/MM3 (0-0.4); EOSINOPHIL % 2.6 % (0.0-4.0); HEMATOCRIT 35.8 % (39.0-51.0); HEMOGLOBIN 12.2 GM/DL (13.0-17.0); LYMPH % 26.6 % (9.0-44.0); LYMPHOCYTE # 1.7 TH/MM3 (1.0-4.8); MEAN CELL VOLUME 86.1 FL (80.0-100.0); MEAN CORPUSCULAR HEMOGLOBIN 29.3 PG (27.0-34.0); MEAN PLATELET VOLUME 8.8 FL (7.0-11.0); MONO % 11.6 % (0.0-8.0); MONOCYTE # 0.7 TH/MM3 (0-0.9); NEUT % 58.5 % (16.0-70.0); PLATELET COUNT 170 TH/MM3 (150-450); RED BLOOD COUNT 4.16 MIL/MM3 (4.50-5.90); RED CELL DISTRIBUTION WIDTH 14.4 % (11.6-17.2); WHITE BLOOD COUNT 6.2 TH/MM3 (4.0-11.0)
[2017-10-03 07:08] LABS: CHLORIDE 112 MEQ/L (98-107); SODIUM (NA) 142 MEQ/L (136-145)
[2017-10-03 07:20] LABS: ALBUMIN 2.9 GM/DL (3.4-5.0); ALT (GPT) 21 U/L (9-52); AST (GOT) 16 U/L (15-39); BICARBONATE 25.5 MEQ/L (21.0-32.0); BLOOD UREA NITROGEN 7 MG/DL (7-18); CALCIUM 8.1 MG/DL (8.5-10.1); CREATININE 0.65 MG/DL (0.60-1.30); GLOMERULAR FILTRATION RATE 157 ML/MIN (>89); GLUCOSE,RANDOM 96 MG/DL (74-106); TOTAL BILIRUBIN ADULT 0.4 MG/DL (0.2-1.0); TOTAL PROTEIN 6.3 GM/DL (6.4-8.2)
[2017-10-03] MEDS ORDERED: RESP: ALBUTEROL 2.5 MG/IPRATROPIUM 0.5 MG NEB (PRN) NEB (07:30)
[2017-10-03 07:33] LABS: ALKALINE PHOSPHATASE 72 U/L (45-117)
[2017-10-03] MEDS ORDERED: ALPRAZOLAM 2 MG PO SCH (09:00)
[2017-10-03] MEDS ORDERED: OSELTAMIVIR PHOSPHATE 75 MG CAP PO SCH (09:00)
[2017-10-03] MEDS ORDERED: PT OWN: PRISTIQ 50MG PO SCH ×2 (09:00)
[2017-10-03] MEDS ORDERED: LEVOFLOXACIN 750 MG TAB PO SCH (09:00)
[2017-10-03] MEDS: SODIUM CHLORIDE 0.9% FLUSH 10 ML FLUSH IV FLUSH SCH ×2 (09:22→21:04)
[2017-10-03] MEDS: LACTOBACILLUS ACIDOPHILUS TAB PO SCH ×3 (09:22→17:31)
[2017-10-03] MEDS: THYROID 60 MG TAB PO SCH (09:23)
[2017-10-03] MEDS: PT OWN: PRISTIQ 50MG PO SCH (10:24)
--- NOTE | 2017-10-03 11:39 | HHI.PR ---
Subjective Remarks Nursing denies any deterioration since last night. Patient says he is better since yesterday but still feels very awfully congested and poor overall. Objective Vital Signs Date Time Temp Pulse Resp B/P (MAP) Pulse Ox O2 Delivery O2 Flow Rate FiO2 10/03/17 08:19 97.9 73 20 97/57 (70) 95 10/03/17 08:00 80 10/03/17 07:37 92 21 10/03/17 04:00 97.3 79 18 104/64 (77) 99 10/02/17 20:00 81 10/02/17 20:00 99.2 100 20 112/66 (81) 94 10/02/17 19:39 92 Nasal Cannula 2.00 10/02/17 16:21 98.7 108 19 108/59 (75) 96 10/02/17 16:02 101 16 95/62 (73) 96 Nasal Cannula 2.00 10/02/17 16:00 96 Nasal Cannula 2.00 10/02/17 14:54 95 Nasal Cannula 2.00 10/02/17 14:49 101 16 94/54 (67) 94 Room Air 10/02/17 13:52 99.9 111 18 91/57 (68) 95 Room Air 10/02/17 12:40 20 92 Room Air 10/02/17 11:50 Room Air 10/02/17 11:50 103.0 138 20 144/65 (91) 94 Room Air I/O 10/02/17 10/02/17 10/02/17 10/03/17 10/03/17 10/03/17 07:00 15:00 23:00 07:00 15:00 23:00 Intake Total 2350 ml 1352 ml Balance 2350 ml 1352 ml Intake IV Total 2350 ml 1352 ml Result Diagram: 10/03/17 0642 10/03/17 0642 Objective Remarks Coarse breath sounds bilaterally with rhonchi and crackles Unlabored breathing On room air with no nasal cannula A/P Assessment and Plan 22-year-old male admitted secondary to sepsis with pneumonia and outpatient treatment failure Sepsis -secondary to pneumonia failing outpatient therapy Rocephin Azithromycin Blood cultures are negative Hypokalemia Replace and monitor ADD/ADHD Type I bipolar disorder General anxiety disorder Depression Schizophrenia Evonne's history History of headaches Continue baseline treatments Joao Altamirano MD Oct 03, 2017 11:39
[2017-10-03] MEDS ORDERED: AZITHROMYCIN INJ 500 MG in SODIUM CHLOR 0.9% 250 ML INJ 250 ML IV SCH (12:00)
[2017-10-03] MEDS: TRIHEXYPHENIDYL 5 MG PO SCH (12:23)
[2017-10-03] MEDS: TOPIRAMATE 25 MG TAB PO SCH (12:24)
[2017-10-03] MEDS: cefTRIAXone INJ 1,000 MG in SODIUM CHLORIDE 0.9% INJ 100 ML IV SCH (14:11)
[2017-10-03] MEDS: guaiFENesin SOLUTION 200 MG/10 ML CUP PO PRN (14:28)
[2017-10-03] MEDS ORDERED: POLYETHYLENE GLYCOL 17 GM PKG PO PRN (17:15)
[2017-10-03] MEDS ORDERED: TOPIRAMATE 25 MG TAB PO SCH (21:00)
[2017-10-03] MEDS ORDERED: TRIHEXYPHENIDYL 5 MG PO SCH (21:00)
[2017-10-03] MEDS: cloZAPine 100 MG TAB PO SCH (21:04)
[2017-10-03] MEDS ORDERED: diphenhydrAMINE HCL 25 MG CAP PO ONE (21:30)
[2017-10-04 04:16] VITALS: BP 127/67; PULSE 71; RESP 20; TEMP 96.5; O2SAT 97
[2017-10-04] MEDS: ALPRAZolam 0.5 MG TAB PO SCH ×3 (06:00→11:54)
[2017-10-04] MEDS: RESP: ALBUTEROL 2.5 MG/IPRATROPIUM 0.5 MG NEB (SCH) NEB ×2 (07:27→14:35)
[2017-10-04 07:28] VITALS: O2SAT 98
[2017-10-04 08:00] VITALS: PULSE 73
[2017-10-04 08:35] VITALS: BP 97/52; PULSE 72; RESP 15; TEMP 96.8; O2SAT 97
[2017-10-04] MEDS: TOPIRAMATE 25 MG TAB PO SCH (09:46)
[2017-10-04] MEDS: LACTOBACILLUS ACIDOPHILUS TAB PO SCH ×2 (09:46→11:54)
[2017-10-04] MEDS: SODIUM CHLORIDE 0.9% FLUSH 10 ML FLUSH IV FLUSH SCH (09:47)
[2017-10-04] MEDS: THYROID 60 MG TAB PO SCH (09:52)
[2017-10-04] MEDS: PT OWN: PRISTIQ 50MG PO SCH (09:53)
[2017-10-04] MEDS: TRIHEXYPHENIDYL 5 MG PO SCH (09:54)
[2017-10-04] MEDS: cefTRIAXone INJ 1,000 MG in SODIUM CHLORIDE 0.9% INJ 100 ML IV SCH (11:50)
[2017-10-04 11:53] VITALS: BP 117/72; PULSE 84; RESP 14; TEMP 96.5; O2SAT 96
[2017-10-04] MEDS ORDERED: AZITHROMYCIN 250 MG TAB PO SCH (12:00)
[2017-10-04] MEDS ORDERED: CEFD300C PO (14:10)
[2017-10-04] MEDS ORDERED: AZIT250T3 PO (14:10)
--- NOTE | 2017-10-04 14:10 | HHI.DCPOC ---
Discharge Care Plan Diagnosis: (1) Failure of outpatient treatment (2) Pneumonia (3) Sepsis Goals to Promote Your Health * To prevent worsening of your condition and complications * To maintain your health at the optimal level Directions to Meet Your Goals Take your medications as prescribed Follow your dietary instruction Follow activity as directed Keep your appointments as scheduled Take your immunizations and boosters as scheduled If your symptoms worsen call your PCP, if no PCP go to Urgent Care Center or Emergency Room Smoking is Dangerous to Your Health. Avoid second hand smoke Call the 24-hour hour crisis hotline for domestic abuse at Joao Altamirano MD Oct 04, 2017 14:10
--- NOTE | 2017-10-04 14:12 | HHI.DS ---
Discharge Summary Admission Date Oct 02, 2017 at 14:12 Discharge Date: Oct 04, 2017 Admitting Diagnosis Sepsis (1) Failure of outpatient treatment ICD Code: Z78.9 - Other specified health status (2) Pneumonia ICD Code: J18.9 - Pneumonia, unspecified organism (3) Sepsis ICD Code: A41.9 - Sepsis, unspecified organism Status: Acute (4) Hypokalemia ICD Code: E87.6 - Hypokalemia Status: Acute Procedures None CBC/BMP: 10/03/17 0642 10/03/17 0642 Significant Findings Laboratory Tests Test 10/02/17 12:10 10/02/17 14:00 10/02/17 16:40 10/03/17 06:42 Neutrophils (%) (Auto) 89.1 % (16.0-70.0) Lymphocytes (%) (Auto) 3.9 % (9.0-44.0) Lymphocytes # (Auto) 0.3 TH/MM3 (1.0-4.8) Random Glucose 147 MG/DL (74-106) Potassium Level 3.1 MEQ/L (3.5-5.1) Estimat Glomerular Filtration Rate 85 ML/MIN (>89) Lactic Acid Level 2.2 mmol/L (0.4-2.0) Urine Ketones TRACE mg/dL (NEG) Urine Occult Blood MOD (NEG) Urine RBC 4-9 /hpf (0-3) Red Blood Count 4.16 MIL/MM3 (4.50-5.90) Hemoglobin 12.2 GM/DL (13.0-17.0) Hematocrit 35.8 % (39.0-51.0) Monocytes (%) (Auto) 11.6 % (0.0-8.0) Total Protein 6.3 GM/DL (6.4-8.2) Albumin 2.9 GM/DL (3.4-5.0) Calcium Level 8.1 MG/DL (8.5-10.1) Chloride Level 112 MEQ/L (98-107) PE at Discharge Coarse breath sounds bilaterally, unlabored breathing . Awake, alert Hospital Course Patient was admitted, started on IV fluids and antibiotics. Fevers resolved. Blood cultures were negative 48 hours. Patient has met maximum benefit from hospitalization and is clinically stable for discharge. Pt Condition on Discharge: Stable Discharge Disposition: Discharge Home Discharge Time: <= 30 minutes Discharge Instructions DIET: Follow Instructions for: As Tolerated, No Restrictions Activities you can perform: Regular-No Restrictions Follow up Referrals: PCP Follow-up - 1 Week New Medications: Azithromycin (Azithromycin) 250 Mg Tab 250 MG PO DAILY for Infection, #2 TAB 0 Refills Cefdinir (Cefdinir) 300 Mg Cap 600 MG PO DAILY for Infection, #7 CAP 0 Refills Continued Medications: Alprazolam ER 24 HR (Xanax Xr 24 HR) 2 Mg Tab 2 MG PO DAILY for Panic Disorder, #30 TAB 0 Refills Take tablet intact, preferably in the morning. Clozapine (Clozaril) 100 Mg Tab 400 MG PO HS for Schizophrenia, TAB 0 Refills Desvenlafaxine Succinate (Desvenlafaxine Succinate ER) 50 Mg Tab.er.24h PO DAILY Thyroid ([place] Thyroid) 60 Mg Tab 60 MG PO DAILY for Thyroid Supplement, #30 TAB 0 Refills Trihexyphenidyl (Trihexyphenidyl) Unknown Strength Tab Unknown Dose PO DAILY for Parkinson Disease Mgmt, #30 TAB 0 Refills Discontinued Medications: Levofloxacin (Levofloxacin) 750 Mg Tablet 750 MG PO DAILY for Infection, TAB 0 Refills Oseltamivir (Tamiflu) 75 Mg Cap 75 MG PO DAILY for Mgmt Viral Infection, CAP 0 Refills Joao Altamirano MD Oct 04, 2017 14:12
== END 2017-10-04 15:56 | disposition home or self-care (01) | DRG 871 ==
LOC: PHED 11:25 → PHEDA 14:09 → OBSVTOIN 14:12 → PH3B 15:53
PROVIDERS: ADMIT Hospitalist; ATTEND Hospitalist
DX: A41.9 Sepsis, unspecified organism (principal); J18.9 Pneumonia, unspecified organism; E06.3 Autoimmune thyroiditis; R09.02 Hypoxemia; E87.6 Hypokalemia; F20.9 Schizophrenia, unspecified; F31.9 Bipolar disorder, unspecified; F41.1 Generalized anxiety disorder; F90.9 Attention-deficit hyperactivity disorder, unspecified type
CPT/HCPCS: 71045; 80053; 81001; 83605; 85025; 87040; 87804; 94640; 94664; 96365; 96367; 96375; J0456; J0696; J2405; J3480; J7030; J7050